=== PATIENT | female | born 1955 | race Caucasian/White ===

== ENCOUNTER 2016-06-20 11:25 | Day surgery (SDC) | payer MEDICARE, OTHER ==
--- NOTE | 2016-06-19 23:37 | HP ---
ADMIT DATE: PREOPERATIVE NOTE PREOPERATIVE DIAGNOSES: Complex regional pain syndrome, right upper extremity. HISTORY OF PRESENT ILLNESS: This is a 60-year-old female with increasing symptoms in the right upper extremity of complex regional pain syndrome, increased swelling, pain, pallor, and allodynic symptoms of the right upper extremity. The patient has done well in the past with stellate ganglion blocks on the right side. Most recently, on 10/30/2015, the patient also had some difficulties with his low back and has done well with some interventional techniques with this as well. She reports she is doing fairly well with the low back pain currently, but the pain in the right upper extremity is becoming much more noticeable and more severe on repeating her activities of daily living to a fairly significant extent once again. The patient reports no new motor or sensory deficits, no other complaints, but still significant pain in the right upper extremity is noted. 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 PAST SURGICAL HISTORY: Previous surgeries include tonsillectomy, orofacial surgeries after injury in 2004. MEDICATIONS: Her most recent medications show diazepam, Lunesta, promethazine, Lamictal, clonidine, Cymbalta, hydrocodone, and hydromorphone. ALLERGIES: THE PATIENT IS ALLERGIC TO FENTANYL AND STRAWBERRIES. 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 REVIEW OF SYSTEMS: The patient's review of systems is positive for pain in the right upper extremity, also some low back pain as noted. Otherwise, this is complete, full and well documented on the patient's chart without other significant findings at this time. PHYSICAL EXAMINATION: VITAL SIGNS: The patient's blood pressure 122/70, pulse 64, respirations 18, temperature is 97.4 degrees Fahrenheit, height is 5 feet 10 inches, weighs 193 pounds. GENERAL: The patient is awake, alert, oriented, appropriate, very pleasant demeanor. HEENT: Shows normocephalic and atraumatic. Extraocular movements are intact and symmetrical. Oral cavity shows mucous membranes are moist and pink. Dentition is intact. NECK: Shows anterior throat supple without palpable lymphadenopathy noted. Swallow reflex is symmetrical. Neck shows full rotational motion of the cervical spine, both extension and flexion as well as right and left lateral rotation. CHEST: Shows normal with inspection. Breath sounds are clear to auscultation bilaterally. HEART: Shows S1 and S2 clear. No murmurs auscultated. ABDOMEN: Soft, nontender, nondistended. No palpable organomegaly. No rebound or guarding demonstrated. EXTREMITIES: Upper extremities: Right arm being held close to her side with guarding the arm with the elbow in a flexed position. The patient does show allodynia with even moderately light touch over the anterior and posterior forearm as well as the posterior and lateral aspect of the upper arm. Hand shows weakened modeling manager at about 2-3 on a scale 5 with pain reported with movement of the hand compared to the left, which is 5/5 and intact. IMPRESSION: This is a 60-year-old female with history of injury with development of complex regional pain syndrome type 1, right upper extremity. PLAN: Options were discussed with the patient and we will schedule the patient for a repeat right-sided stellate ganglion block with fluoroscopic guidance and conscious sedation in the operating suite. The patient will return. We will plan on the procedure on 06/20/2016. SKYLA COHN MD DR: ERIKA/angela JOB#: [id number] / [id number]
[~2016-06-20 11:25] MED LIST: BUPIVACAINE MPF 0.25% 30 ML VIAL. ONE; CLON0.1T PO; DIAZ5TAB PO; DULO30CA2 PO; ESZO3TAB9 PO; HYALURONIDASE, HUMAN RECOMB. 150 UNIT/ML VIAL. IJ ONE; HYDR-2666 PO; HYDR-2762 PO; HYDR2TAB13 PO; HYDROmorphone 2 MG/ML VIAL IV PRN; IOHEXOL 300 MG/ML 50 ML VIAL. ONE; IV RINGERS,LACTATED 1000ML 1,000 ML IV SCH; LAMO150T3 PO; LIDO700A27 TP; LIDO700A4 TP; LIDOCAINE 1% 1 ML SYRINGE. ID PRN; LIDOCAINE 1% PF 30 ML VIAL. ONE; MORPHINE SULFATE 2 MG/ML DISP.SYRIN. IV PRN; ONDANSETRON PF 4 MG/2 ML VIAL. IV PRN; PROCHLORPERAZINE 10 MG/2 ML VIAL. IV PRN; PROM25TA10 PO; SODIUM CHLORIDE 3 % 500 ML IV ONE; TRAM50TA PO; methylPREDNISolone ACETATE 40 MG/ML VIAL. ONE; methylPREDNISolone ACETATE 80 MG/ML VIAL. ONE
[2016-06-20] MEDS ORDERED: PROPOFOL 40 ML IV ONE (12:21)
[2016-06-20] MEDS ORDERED: IV RINGERS,LACTATED 1000ML 1,000 ML IV ONE (12:30)
[2016-06-20] MEDS ORDERED: MIDAZOLAM HCL/PF 2 MG/2 ML VIAL. ONE (12:54)
[2016-06-20] MEDS ORDERED: IOHEXOL 180 MG/ML 10 ML VIAL. IJ ONE (13:08)
[2016-06-20] MEDS ORDERED: PROPOFOL 20 ML IV ONE (13:16)
--- NOTE | 2016-06-20 13:21 | DISCH ---
DISCHARGE INSTRUCTIONS Condition on Discharge Condition on Discharge: Stable Activity After Discharge Activity Instructions for Disc: Activity as tolerated Driving Instructions after Dis: Do not drive today Diet after Discharge Diet after Discharge: Regular Contacting the DR. after DC Call your doctor for: Concerns you may have Treatment/Equipment after DC Adaptive Equipment Issued: None SKYLA COHN MD June 20, 2016 13:21
[2016-06-20] MEDS ORDERED: HYDROmorphone 2 MG TABLET PO PRN (14:00)
[2016-06-20] MEDS ORDERED: HYDROmorphone 2 MG TABLET ONE (14:00)
[2016-06-20 14:36] VITALS: BP 172/85
--- NOTE | 2016-06-20 17:17 | OP ---
DATE OF SURGERY: 06/20/2016 PROCEDURE NOTE FOR PAIN CLINIC PREOPERATIVE DIAGNOSIS: Complex regional pain syndrome, right upper extremity. POSTOPERATIVE DIAGNOSIS: Complex regional pain syndrome, right upper extremity. PROCEDURE: Right stellate ganglion injection with C-arm fluoroscopic guidance. ANESTHESIA: IV sedation and local. COMPLICATIONS: None. BLOOD LOSS: Minimal. DESCRIPTION OF PROCEDURE: After consent was obtained with the patient and her spouse, with risks discussed for the procedure including, but not limited to bleeding, infection, possibility of intravascular injection and sequelae, spread of local anesthetic and numbness, total spinal block as well as resuscitative measures with intravascular injection and poor results regarding pain control. The patient understands and agrees. The patient was taken to operating suite #9 and in supine position moved to the OR bed, all standard monitoring was placed and anesthesia was induced IV for sedation. Under sterile prep and drape, the patient's neck was examined using C-arm and fluoroscopic guidance in both AP and lateral views and identified the cervical spine AP view at the level of the right transverse process and the union of the transverse process and the vertebral body on the right was marked with a skin marker externally. At this point, the area was then anesthetized with 0.25% bupivacaine 1 mL for local anesthetic. At this time, a 22-gauge Jone tipped needle with stylette was then advanced through the anesthetized area under direct fluoroscopic guidance to contact the C6 right transverse process at the junction of the transverse process and the vertebral body. Good contact of bone was made. Stylet was removed. Aspiration was noted to be negative. At this time 1.5 mL of 180 Omnipaque contrast was injected with good local spread superiorly and inferiorly from the needle without wash-up or uptake. This was monitored for 60 seconds with no uptake whatsoever. At this time, 5 mL of 0.25% bupivacaine was then slowly injected intermittently with a control syringe after negative aspiration once again and again direct fluoroscopic guidance between injection boluses, a total of 5 mL. Needle was withdrawn. Sterile bandage was applied. The patient tolerated the procedure well, had no complications. The patient was taken to recovery room in good, awake, and stable condition. SKYLA COHN MD DR: ERIKA/angela JOB#: [id number] / [id number]
== END 2016-06-20 14:38 | disposition home or self-care (01) ==
LOC: SURG 11:25
PROVIDERS: ATTEND Anesthesiology
DX: G90.511 Complex regional pain syndrome I of right upper limb (principal); I10 Essential (primary) hypertension; E66.9 Obesity, unspecified; F32.9 Major depressive disorder, single episode, unspecified; Z87.39 Personal history of other diseases of the musculoskeletal system and connective tissue; H91.91 Unspecified hearing loss, right ear
CPT/HCPCS: 64510; 76000; J2250; J2704; J3490; J1030; J1040; J3470; Q9967

== ENCOUNTER 2016-10-24 11:06 | Day surgery (SDC) | payer MEDICARE, OTHER ==
[~2016-10-24 11:06] MED LIST changes: -BUPIVACAINE MPF 0.25% 30 ML VIAL. ONE; +BUPIVACAINE MPF 0.5% 30 ML VIAL. ONE; +ESZO3TAB28 PO; -ESZO3TAB9 PO; -HYALURONIDASE, HUMAN RECOMB. 150 UNIT/ML VIAL. IJ ONE; -HYDR-2666 PO; +HYDR-2758 PO; -HYDR2TAB13 PO; +HYDR2TAB31 PO; -SODIUM CHLORIDE 3 % 500 ML IV ONE
[2016-10-24] MEDS ORDERED: MIDAZOLAM HCL/PF 2 MG/2 ML VIAL. ONE (12:27)
[2016-10-24] MEDS ORDERED: fentaNYL PF VIAL 100 MCG/2 ML VIAL ONE (12:27)
[2016-10-24] MEDS ORDERED: LIDOCAINE 2% PF Vial for OR 5 ML VIAL. ONE (12:34)
[2016-10-24] MEDS ORDERED: PROPOFOL 20 ML IV ONE (12:34)
[2016-10-24] MEDS ORDERED: BUPIVACAINE 0.25% 50 ML VIAL. ONE (12:36)
[2016-10-24] MEDS ORDERED: IOHEXOL 180 MG/ML 20ML VIAL. ONE (12:36)
--- NOTE | 2016-10-24 12:55 | DISCH ---
DISCHARGE INSTRUCTIONS Condition on Discharge Condition on Discharge: Stable Activity After Discharge Activity Instructions for Disc: Resume previous activity, Activity as tolerated Driving Instructions after Dis: Do not drive today Weight Bearing Status after Di: As tolerated Diet after Discharge Diet after Discharge: Regular Contacting the DR. after DC Call your doctor for: Concerns you may have SKYLA COHN MD Oct 24, 2016 12:55
[2016-10-24 13:45] VITALS: BP 145/76
--- NOTE | 2016-10-24 14:14 | OP ---
DATE OF SURGERY: 10/24/2016 PREOPERATIVE DIAGNOSIS: Complex regional pain syndrome, right upper extremity. POSTOPERATIVE DIAGNOSIS: Complex regional pain syndrome, right upper extremity. PROCEDURE: Right stellate ganglion block with C-arm fluoroscopic guidance. ANESTHESIA: IV sedation and local. ESTIMATED BLOOD LOSS: Minimal. COMPLICATIONS: None. DESCRIPTION OF PROCEDURE: The patient was consented for procedure with risks discussed including, but not limited to bleeding, infection, possibility of intravascular injection and sequelae, spread of local anesthetic and numbness, postoperative bleeding and airway compromise as well as poor results regarding pain control. The patient understands and wishes to proceed. The patient was taken to operating room #2 and placed in supine position. ASA standard monitors were placed. Oxygen was given supplementally and sedation was begun. After timeout, the patient was then prepped and draped in the usual fashion on the anterior cervical distribution in the right neck and shoulder anteriorly. Using C-arm fluoroscopic guidance, the patient's cervical spine was identified and the right transverse process of C6 was identified externally. At this time, 1% lidocaine was used to instill skin wheal over the area overlying the C6 right transverse process. Using a 22-gauge Jone tipped needle with stylet was then advanced through the local anesthetic wheal under direct fluoroscopic guidance to contact the right transverse process at the C6 level. Stylet was removed. Aspiration was noted to be negative. Contrast 180 Isovue 2 mL was used to demonstrate good consistent spread up and down the anterior chain of the right lateral cervical distribution, without wash-out or uptake, and after 30 seconds, it was and found to be in the same position. At this time, with intermittent aspiration negative throughout, 0.25% bupivacaine 10 mL total was injected through the Jone tipped needle, without difficulty or resistance. At this time, needle was withdrawn. Sterile bandage was applied. The patient tolerated the procedure well, had no complications and was taken to the recovery room in good, awake and stable condition. SKYLA COHN MD DR: ERIKA/angela JOB#: [id number] / [id number]
== END 2016-10-24 14:11 | disposition home or self-care (01) ==
LOC: SURG 11:06
PROVIDERS: ATTEND Anesthesiology
DX: G90.511 Complex regional pain syndrome I of right upper limb (principal); Z86.39 Personal history of other endocrine, nutritional and metabolic disease; I10 Essential (primary) hypertension; E66.9 Obesity, unspecified; Z68.44 Body mass index [BMI] 60.0-69.9, adult; Z91.018 Allergy to other foods; Z09 Encounter for follow-up examination after completed treatment for conditions other than malignant neoplasm; Z88.4 Allergy status to anesthetic agent
CPT/HCPCS: 64510; 76000; J2250; J2704; J3490; J1030; J1040; J3010; Q9967; J2001

== ENCOUNTER 2017-04-24 11:46 | Day surgery (SDC) | payer MEDICARE, OTHER ==
[~2017-04-24 11:46] MED LIST changes: -BUPIVACAINE MPF 0.5% 30 ML VIAL. ONE; -CLON0.1T PO; -DIAZ5TAB PO; -DULO30CA2 PO; -ESZO3TAB28 PO; -HYDR-2758 PO; -HYDR-2762 PO; -HYDR2TAB31 PO; +HYDROmorphone 2 MG/ML VIAL IV; -HYDROmorphone 2 MG/ML VIAL IV PRN; -IOHEXOL 300 MG/ML 50 ML VIAL. ONE; -IV RINGERS,LACTATED 1000ML 1,000 ML IV SCH; -LAMO150T3 PO; -LIDO700A27 TP; -LIDO700A4 TP; -LIDOCAINE 1% 1 ML SYRINGE. ID PRN; +LIDOCAINE 1% PF 2 ML VIAL. ID; -LIDOCAINE 1% PF 30 ML VIAL. ONE; +MORPHINE SULFATE 2 MG/ML DISP.SYRIN. IV; -MORPHINE SULFATE 2 MG/ML DISP.SYRIN. IV PRN; +ONDANSETRON PF 4 MG/2 ML VIAL. IV; -ONDANSETRON PF 4 MG/2 ML VIAL. IV PRN; +PROCHLORPERAZINE 10 MG/2 ML VIAL. IV; -PROCHLORPERAZINE 10 MG/2 ML VIAL. IV PRN; -PROM25TA10 PO; -TRAM50TA PO; -methylPREDNISolone ACETATE 40 MG/ML VIAL. ONE; -methylPREDNISolone ACETATE 80 MG/ML VIAL. ONE
[2017-04-24] MEDS: IV RINGERS,LACTATED 1000ML 1,000 ML IV (12:03)
[2017-04-24] MEDS: LIDOCAINE 1% 20 ML VIAL. (12:57)
[2017-04-24] MEDS: BUPIVACAINE MPF 0.25% 30 ML VIAL. (12:57)
[2017-04-24] MEDS: IOHEXOL 300 MG/ML 100ML VIAL. (12:57)
== END 2017-04-24 13:53 | disposition home or self-care (01) ==
LOC: SURG 11:46
DX: G90.511 Complex regional pain syndrome I of right upper limb (principal); Z98.890 Other specified postprocedural states; I10 Essential (primary) hypertension; E66.9 Obesity, unspecified; F32.9 Major depressive disorder, single episode, unspecified; Z88.8 Allergy status to other drugs, medicaments and biological substances; Z91.018 Allergy to other foods
CPT/HCPCS: 64510; 76000; C1769; J3490; Q9967

== ENCOUNTER 2017-08-14 11:13 | Day surgery (SDC) | payer MEDICARE, OTHER ==
[~2017-08-14 11:13] MED LIST changes: +HYALURONIDASE, HUMAN RECOMB. 150 UNIT/ML VIAL. IJ; -HYDROmorphone 2 MG/ML VIAL IV; -ONDANSETRON PF 4 MG/2 ML VIAL. IV; +SODIUM CHLORIDE 3 % 500 ML MC
[2017-08-14] MEDS: IV RINGERS,LACTATED 1000ML 1,000 ML IV (12:03)
[2017-08-14] MEDS: ONDANSETRON PF 4 MG/2 ML VIAL. IV (12:04)
[2017-08-14] MEDS ORDERED: MIDAZOLAM HCL/PF 2 MG/2 ML VIAL. (12:29)
[2017-08-14] MEDS ORDERED: LIDOCAINE 2% PF Vial for OR 5 ML VIAL. (12:41)
[2017-08-14] MEDS ORDERED: PROPOFOL 20 ML IV (12:41)
[2017-08-14] MEDS: ROPIVacaine 0.2% PF 10 ML VIAL. (12:55)
[2017-08-14] MEDS: IOHEXOL 300 MG/ML 100ML VIAL. (12:56)
[2017-08-14] MEDS: LIDOCAINE 1% PF 30 ML VIAL. (12:56)
== END 2017-08-14 14:09 | disposition home or self-care (01) ==
LOC: SURG 11:13
DX: G90.511 Complex regional pain syndrome I of right upper limb (principal); Z91.018 Allergy to other foods; Z88.6 Allergy status to analgesic agent; Z98.890 Other specified postprocedural states; I10 Essential (primary) hypertension; E66.9 Obesity, unspecified; F32.9 Major depressive disorder, single episode, unspecified
CPT/HCPCS: 64510; 76000; 77003; J2001; J2250; J2405; J2704; J2795; J3470; J3490; Q9967

== ENCOUNTER → 2017-12-11 | Day surgery (SDC) | payer MEDICARE, OTHER ==
[~2017-12-11] MED LIST changes: +BUPIVACAINE 0.25% 50 ML VIAL. ONE; +CLON0.1T PO; +DIAZ5TAB PO; +DULO30CA2 PO; +ESZO3TAB28 PO; -HYALURONIDASE, HUMAN RECOMB. 150 UNIT/ML VIAL. IJ; +HYALURONIDASE, HUMAN RECOMB. 150 UNIT/ML VIAL. IJ ONE; +HYDR-2758 PO; +HYDR-2762 PO; +HYDR2TAB31 PO; +HYDROmorphone 2 MG/ML VIAL IV PRN; +IOHEXOL 300 MG/ML 100ML VIAL. ONE; +IV RINGERS,LACTATED 1000ML 1,000 ML IV SCH; +LAMO150T3 PO; +LIDO700A27 TP; +LIDO700A4 TP; -LIDOCAINE 1% PF 2 ML VIAL. ID; +LIDOCAINE 1% PF 2 ML VIAL. ID PRN; +LIDOCAINE 1% PF 30 ML VIAL. ONE; +LIDOCAINE 2% PF Vial for OR 5 ML VIAL. ONE; -MORPHINE SULFATE 2 MG/ML DISP.SYRIN. IV; +MORPHINE SULFATE 2 MG/ML VIAL. IV PRN; +ONDANSETRON PF 4 MG/2 ML VIAL. IV PRN; -PROCHLORPERAZINE 10 MG/2 ML VIAL. IV; +PROCHLORPERAZINE 10 MG/2 ML VIAL. IV PRN; +PROM25TA10 PO; +PROPOFOL 40 ML IV ONE; -SODIUM CHLORIDE 3 % 500 ML MC; +SODIUM CHLORIDE 3 % 500 ML MC ONE; +TRAM50TA PO; +methylPREDNISolone ACETATE 40 MG/ML VIAL. ONE; +methylPREDNISolone ACETATE 80 MG/ML VIAL. ONE
--- NOTE | 2017-12-11 11:04 | PAIN ---
DATE OF SERVICE: 12/11/2017 PROGRESS NOTE FOR PAIN CLINIC DIAGNOSES: 1. Complex regional pain syndrome type 1, right upper extremity. 2. Lumbar radiculopathy with lumbar degenerative disk disease. CHIEF COMPLAINT: Right upper extremity pain. HISTORY OF PRESENT ILLNESS: This is a 62-year-old female with previous right complex regional pain syndrome with good response to right stellate blocks with most recently on 08/13/2017, previously 04/24/2017 with good results with near 80% improvement in the right upper extremity with decreased pain, decreased cold, changes as well as improved color and circulation in the arm. The patient reports she did very well with the pain has been returning now over the past 3-4 weeks with some increased sensitivity to cold sensation and light touch and breeze on the right upper extremity, mostly in the forearm and hand. The patient reports worsening since previous exam. No new motor or sensory changes or deficits but still significant pain as noted. 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 PAST SURGICAL HISTORY: Previous surgeries include tonsillectomy and orofacial surgery as well. CURRENT MEDICATIONS: Include Cymbalta, hydrocodone, promethazine, Lamictal, Lunesta, diazepam, clonidine and hydromorphone. ALLERGIES: The patient is allergic to FENTANYL and STRAWBERRIES. SOCIAL HISTORY: Significant for no smoking. Does not drink alcohol. No other illegal illicit drugs or other substance. 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 REVIEW OF SYSTEMS: Positive for those items mentioned in history of present illness. All systems reviewed and otherwise negative. It is complete, full and well documented on the patient's chart. PHYSICAL EXAMINATION: VITAL SIGNS: The patient's blood pressure is 138/71, pulse 67, respirations are 16 and temperature is 98.2 degrees Fahrenheit. GENERAL: The patient is awake, alert, oriented, appropriate and very pleasant demeanor. HEENT: Head shows normocephalic and atraumatic. Extraocular movements are intact and symmetrical. Oral cavity: Mucous membranes are moist and pink. Dentition is intact. NECK: Shows anterior throat supple without palpable lymphadenopathy noted. Swallow reflex is symmetrical. CHEST: Shows normal with inspection. Breath sounds clear to auscultation bilaterally. HEART: Shows S1 and S2 clear. No murmurs auscultated. ABDOMEN: Soft, nontender and nondistended. Obese. No palpable organomegaly is noted. BACK: Shows spine grossly in the midline. Normal-appearing lordotic cervical curvature as well as thoracic kyphotic curvature and lumbar lordotic curvature. Cervical paraspinous muscle shows some very mild tenderness inferiorly in the cervical paraspinous muscles but only in the inferior aspect without radiation, without asymmetry. No trigger points. The patient has good rotational motion of the cervical spine, both laterally as well as extension and flexion without difficulty. EXTREMITIES: The patient's upper extremities show deep tendon reflexes at 1+ in the biceps and triceps tendons. The patient's right arm is guarded. The patient holding it against her body and productively. The patient has some allodynia with light touch over the anterior and posterior forearm as well as the upper arm, biceps region as well, mostly and the patient's hand does show some mild allodynia with light touch also. The patient's peripheral pulses are 2+ radial distribution. No peripheral edema is noted bilaterally. Upper extremities are warm and dry to touch, equal in color and appearance. Right side slightly more pallorous than the left and the right hand and fingers on the posterior aspect. IMPRESSION: 1. This is a 62-year-old female with a complex regional pain syndrome type 1, right upper extremity. 2. Low back pain with lumbar radiculopathy. PLAN: Options were discussed with the patient including conservative medical management, physical therapy, interventional techniques. She would like to pursue interventional techniques. We discussed repeating a right-sided stellate ganglion block and the patient would like to proceed with this. We will make the arrangements to proceed on December 11 in the Operating Room with fluoroscopic guidance and IV sedation. We will have her scheduled for this. N.p.o. after midnight and plan also a ganglion block at that time. SKYLA COHN MD DR: ERIKA/angela JOB#: [id number] / [id number]
--- NOTE | 2017-12-11 12:38 | DISCH ---
DISCHARGE INSTRUCTIONS Condition on Discharge Condition on Discharge: Stable Activity After Discharge Activity Instructions for Disc: Activity as tolerated Driving Instructions after Dis: Do not drive today Weight Bearing Status after Di: As tolerated Diet after Discharge Diet after Discharge: Regular Wound Incision Care Wound/Incision Care: May get incision wet Contacting the DR. after DC Call your doctor for: Concerns you may have Treatment/Equipment after DC Adaptive Equipment Issued: None SKYLA COHN MD Dec 11, 2017 12:37
[2017-12-11 13:10] VITALS: BP 135/77
--- NOTE | 2017-12-12 06:00 | PAIN ---
DATE OF SERVICE: 12/11/2017 PREOPERATIVE DIAGNOSIS: Complex regional pain syndrome, type 1, right upper extremity. POSTOPERATIVE DIAGNOSIS: Complex regional pain syndrome, type 1, right upper extremity. PROCEDURE: Right stellate ganglion block with fluoroscopic guidance. ANESTHESIA: IV sedation and local. COMPLICATIONS: None. BLOOD LOSS: Minimal. DESCRIPTION OF PROCEDURE: The patient was consented for right stellate ganglion block with risks discussed including, but not limited to bleeding, infection, possibility of intravascular injection sequelae, spread of local anesthetic and numbness, side effects of steroid medication as well as poor results regarding pain control. The patient understands and wished to proceed. The patient was taken to operating room #6. After timeout procedure was performed and sterile prep and drape and ASA monitors placed, using C-arm fluoroscopic guidance in both AP and lateral views, cervical spine was then visualized without difficulty. External marker was placed over the right C6 transverse process. At this time, local anesthetic was used 1% lidocaine without epinephrine to localize the skin over the C6 transverse process. At this time, a 22-gauge Jone pencil point tipped needle with stylet was advanced under fluoroscopic guidance with intermittent views to contact the C6 transverse process. Stylet was removed. Negative aspiration was confirmed. 1 mL of Isovue contrast was injected with good local spread superior and inferior from the needle placement tip. 30 seconds was allowed, refluored without any uptake or washout noted. At this time, 10 mL of 0.25% bupivacaine was then injected under intermittent aspiration with negative aspiration throughout the injection. Needle was withdrawn. Sterile bandage was applied. The patient tolerated procedure well, had no complications, was transferred to the recovery room in good stable and awake condition. SKYLA COHN MD DR: ERIKA/angela JOB#: [id number] / [id number]
--- NOTE | 2017-12-14 10:47 | OP ---
DATE OF SURGERY: 12/11/2017 PREOPERATIVE DIAGNOSIS: Complex regional pain syndrome, type 1, right upper extremity. POSTOPERATIVE DIAGNOSIS: Complex regional pain syndrome, type 1, right upper extremity. PROCEDURE: Right stellate ganglion block with fluoroscopic guidance. ANESTHESIA: IV sedation and local. COMPLICATIONS: None. BLOOD LOSS: Minimal. DESCRIPTION OF PROCEDURE: The patient was consented for right stellate ganglion block with risks discussed including, but not limited to bleeding, infection, possibility of intravascular injection sequelae, spread of local anesthetic and numbness, side effects of steroid medication as well as poor results regarding pain control. The patient understands and wished to proceed. The patient was taken to operating room #6. After timeout procedure was performed and sterile prep and drape and ASA monitors placed, using C-arm fluoroscopic guidance in both AP and lateral views, cervical spine was then visualized without difficulty. External marker was placed over the right C6 transverse process. At this time, local anesthetic was used 1% lidocaine without epinephrine to localize the skin over the C6 transverse process. At this time, a 22-gauge Jone pencil point tipped needle with stylet was advanced under fluoroscopic guidance with intermittent views to contact the C6 transverse process. Stylet was removed. Negative aspiration was confirmed. 1 mL of Isovue contrast was injected with good local spread superior and inferior from the needle placement tip. 30 seconds was allowed, refluored without any uptake or washout noted. At this time, 10 mL of 0.25% bupivacaine was then injected under intermittent aspiration with negative aspiration throughout the injection. Needle was withdrawn. Sterile bandage was applied. The patient tolerated procedure well, had no complications, was transferred to the recovery room in good stable and awake condition. SKYLA COHN MD DR: ERIKA/angela JOB#: [id number] / [id number]
== END | disposition home or self-care (01) ==
LOC: SURG 11:02
PROVIDERS: ATTEND Anesthesiology
DX: G90.511 Complex regional pain syndrome I of right upper limb (principal); I10 Essential (primary) hypertension; E66.9 Obesity, unspecified; F32.9 Major depressive disorder, single episode, unspecified; Z98.890 Other specified postprocedural states; Z79.899 Other long term (current) drug therapy
CPT/HCPCS: 64510; 76000; A7015; J2001; J2704; J3490; Q9967; J1030; J1040; J3470

== ENCOUNTER → 2018-04-05 | Outpatient (CLI) | payer MEDICARE, OTHER ==
[2017-12-11 13:10] VITALS: BP 135/77
[~2018-04-05] MED LIST changes: -BUPIVACAINE 0.25% 50 ML VIAL. ONE; -HYALURONIDASE, HUMAN RECOMB. 150 UNIT/ML VIAL. IJ ONE; -HYDR-2758 PO; +HYDR-2761 PO; -HYDR-2762 PO; +HYDR-2765 PO; -HYDROmorphone 2 MG/ML VIAL IV PRN; -IOHEXOL 300 MG/ML 100ML VIAL. ONE; -IV RINGERS,LACTATED 1000ML 1,000 ML IV SCH; -LIDOCAINE 1% PF 2 ML VIAL. ID PRN; -LIDOCAINE 1% PF 30 ML VIAL. ONE; -LIDOCAINE 2% PF Vial for OR 5 ML VIAL. ONE; -MORPHINE SULFATE 2 MG/ML VIAL. IV PRN; -ONDANSETRON PF 4 MG/2 ML VIAL. IV PRN; -PROCHLORPERAZINE 10 MG/2 ML VIAL. IV PRN; -PROPOFOL 40 ML IV ONE; -SODIUM CHLORIDE 3 % 500 ML MC ONE; -methylPREDNISolone ACETATE 40 MG/ML VIAL. ONE; -methylPREDNISolone ACETATE 80 MG/ML VIAL. ONE
--- NOTE | 2018-04-05 20:23 | PAIN ---
DATE OF SERVICE: 04/05/2018 PROGRESS NOTE FOR PAIN CLINIC DIAGNOSES: 1. Complex regional pain syndrome type 1, right upper extremity. 2. Lumbar radiculopathy with lumbar degenerative disk disease. CHIEF COMPLAINT: Right upper extremity pain. HISTORY OF PRESENT ILLNESS: The patient is a 62-year-old female with previous right complex regional pain syndrome, good response from stellate ganglion blocks with the last block about 80% improved. This was in November of 2017. The patient did very well until the last 4-5 weeks with returning pain in the right upper extremity with any motion or use of the shoulder and arm. Has weakness of the hand, difficulty dropping items. She cannot hold a coffee cup with her right hand, also cold sensation as well as some pallor in the right arm and hand. The patient reports no new motor or sensory deficits; however, no new bowel or bladder incontinence, still significant pain, right upper extremity, again worsening since previous exam. 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 PREVIOUS SURGERY: Include tonsillectomy, orofacial surgeries after injury in 2004. CURRENT MEDICATIONS: Include diazepam, Lunesta, promethazine, Lamictal, hydromorphone, hydrocodone, Cymbalta, clonidine and lidocaine patches. ALLERGIES: The patient is allergic to FENTANYL and STRAWBERRIES. 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 REVIEW OF SYSTEMS: The patient's review of systems is positive for those items mentioned in history of present illness, is complete, full and well documented on the patient's chart. All systems reviewed. No other significant findings. PHYSICAL EXAMINATION: VITAL SIGNS: Today, the patient's blood pressure is 144/81, pulse 61, respirations 18, temperature 98.1 degrees Fahrenheit, height is 5 feet 10 inches, weighs 189 pounds. GENERAL: The patient is awake, alert, oriented, appropriate, very pleasant demeanor. HEENT: Head is normocephalic, atraumatic. Extraocular movements intact and symmetrical. Oral cavity: Mucous membranes moist and pink. Dentition is intact. NECK: Shows full range of motion of the cervical spine. Anterior throat is supple without palpable lymphadenopathy noted. Swallow reflex is symmetrical. CHEST: Shows normal on inspection. Breath sounds clear to auscultation bilaterally. HEART: Shows S1, S2 clear. No murmurs auscultated. ABDOMEN: Soft, nontender, nondistended. No palpable organomegaly is noted. No rebound or guarding demonstrated. BACK: Shows grossly midline spine. Normal appearing cervical lordotic curvature, thoracic kyphotic curvature and lumbar lordotic curvature. Cervical paraspinous muscle shows some mild tenderness in the inferior aspect of the cervical paraspinous musculature, but without radiation. No atrophy, hypertrophy. Lumbar spine shows moderate tenderness in the low lumbar distribution bilaterally without significant radiation as well. Good rotational motion both cervical and lumbar spine without significant pain reported. EXTREMITIES: The patient's upper extremities show deep tendon reflexes at 1+ in the biceps and triceps tendons. Right arm is guarded being held in a flexed position, closed to the patient's side with some allodynia with moderately light touch over the anterior and posterior forearm as well as the upper arm, back of the hand without significant discoloration noted compared to the left upper extremity. The left shows humanities teacher strength 5/5, right is 3/5. Peripheral pulses are 2+ bilaterally in the radial distribution. SKIN: Shows warm and dry, good turgor. No edema. IMPRESSION: 1. This is a 62-year-old female with complex regional pain syndrome type 1, right upper extremity. 2. Low back pain with lumbar radiculopathy and degenerative disk disease. PLAN: Options were discussed with the patient including conservative medical management, physical therapy, interventional techniques. She would like to proceed with interventional techniques. She did very well with right stellate ganglion blocks under fluoroscopic guidance with some conscious sedation. We will schedule this with the operating suite for her next available as she has responded very well with these in the past and the pain is increasing over the past month or so in the right upper extremity. We will maintain with stretching and strengthening exercises, mobility exercises with the right upper extremity and medications will be refilled today as well, hydromorphone, hydrocodone, clonidine as well as Lidoderm patches and Valium. The patient was given instruction as well as side effects of each of medications. She has had appropriate K-TRACS reporting as well as appropriate urinalysis to date and we will refill these with instructions as described. The patient will follow up in approximately at next available. We will check with OR scheduling and return for right stellate ganglion block. SKYLA COHN MD DR: ERIKA/angela JOB#: [id number] / [id number]
== END | disposition home or self-care (01) ==
LOC: PNCL 10:07
PROVIDERS: ATTEND Anesthesiology
DX: G90.511 Complex regional pain syndrome I of right upper limb (principal); M51.16 Intervertebral disc disorders with radiculopathy, lumbar region
CPT/HCPCS: G0463

== ENCOUNTER 2018-04-16 11:26 | Day surgery (SDC) | payer MEDICARE, OTHER ==
[~2018-04-16 11:26] MED LIST changes: +BUPIVACAINE 0.25% 50 ML VIAL. ONE; +HYDROmorphone 2 MG/ML VIAL IV PRN; +IOHEXOL 300 MG/ML 100ML VIAL. ONE; +IV RINGERS,LACTATED 1000ML 1,000 ML IV SCH; +LIDOCAINE 1% PF 30 ML VIAL. ONE; +MORPHINE SULFATE 2 MG/ML VIAL. IV PRN; +ONDANSETRON PF 4 MG/2 ML VIAL. IV PRN; +PROCHLORPERAZINE 10 MG/2 ML VIAL. IV PRN; +methylPREDNISolone ACETATE 40 MG/ML VIAL. ONE; +methylPREDNISolone ACETATE 80 MG/ML VIAL. ONE
[2018-04-16] MEDS ORDERED: MIDAZOLAM HCL/PF 2 MG/2 ML VIAL. ONE (12:04)
[2018-04-16] MEDS ORDERED: PROPOFOL 20 ML IV ONE (12:53)
--- NOTE | 2018-04-16 13:08 | DISCH ---
DISCHARGE INSTRUCTIONS Condition on Discharge Condition on Discharge: Stable Activity After Discharge Activity Instructions for Disc: Activity as tolerated Driving Instructions after Dis: Do not drive today Weight Bearing Status after Di: As tolerated Diet after Discharge Diet after Discharge: Regular Wound Incision Care Wound/Incision Care: May get incision wet Contacting the DR. after DC Call your doctor for: Concerns you may have Treatment/Equipment after DC Adaptive Equipment Issued: None SKYLA COHN MD Apr 16, 2018 13:08
[2018-04-16 13:53] VITALS: BP 140/99
--- NOTE | 2018-04-17 00:11 | OP ---
DATE OF SURGERY: 04/16/2018 PREOPERATIVE DIAGNOSIS: Complex regional pain syndrome, right upper extremity. POSTOPERATIVE DIAGNOSIS: Complex regional pain syndrome, right upper extremity. PROCEDURE: Right stellate ganglion block with C-arm fluoroscopic guidance. COMPLICATIONS: None. ANESTHESIA: IV sedation and local. DESCRIPTION OF PROCEDURE: The patient was consented for right stellate ganglion block. Risks discussed including, but not limited to bleeding, infection, possibility of intravascular injection sequelae, spread of local anesthetic and numbness, side effects of local anesthetic intravenous including seizures with associated measures if necessary as well as exposure to fluoroscopy and poor results regarding pain control. The patient understands and agrees and wishes to proceed. The patient was taken to operating room #8 with ASA standard monitors placed, with the patient transferring herself to her own bed without difficulty in the supine position. IV sedation was begun after the monitors were placed and the patient's neck was prepped on the right side, the neck and shoulder under sterile prep and drape in the usual fashion. Using C-arm fluoroscopic guidance to directly visualize the cervical spine on the right side, the transverse process of the C6 vertebral body was identified and local anesthetic using 1% lidocaine was then used for local anesthesia of the skin and subcutaneous tissues. Using a 22-gauge Jone needle with stylet, the area through the anesthetized skin was then entered under direct visualization. It was extended to the contact of the right transverse process at the C6 vertebral body. This was verified again with C-arm fluoroscopic guidance. The stylet was removed from the needle. Using Isovue 200, 1 mL was then injected with good local spread above and below the area of the transverse process, without uptake. This was checked again after 30 seconds, with no uptake. No vascular spread or washout. At this time, a 0.25% bupivacaine was then injected through the needle with intermittent aspiration after every mL, with negative aspiration throughout the procedure and injection for a total of 10 mL. Needle was withdrawn. Sterile bandage was applied. The patient was transferred to the recovery room in good and stable condition, without immediate complications. SKYLA COHN MD DR: ERIKA/angela JOB#: [id number] / [id number]
== END 2018-04-16 14:17 | disposition home or self-care (01) ==
LOC: SURG 11:26
PROVIDERS: ATTEND Anesthesiology
DX: G90.511 Complex regional pain syndrome I of right upper limb (principal); M51.16 Intervertebral disc disorders with radiculopathy, lumbar region; Z88.6 Allergy status to analgesic agent; Z91.018 Allergy to other foods; H54.40 Blindness, one eye, unspecified eye; Z98.890 Other specified postprocedural states; H91.90 Unspecified hearing loss, unspecified ear; Z79.899 Other long term (current) drug therapy
CPT/HCPCS: 64510; 76000; J2250; J2704; J3490; Q9967; J1030; J1040

== ENCOUNTER 2018-10-15 11:12 | Day surgery (SDC) | payer MEDICARE, OTHER ==
[~2018-10-15 11:12] MED LIST changes: -BUPIVACAINE 0.25% 50 ML VIAL. ONE; +BUPIVACAINE MPF 0.25% 30 ML VIAL. ONE; +HYALURONIDASE, HUMAN RECOMB. 150 UNIT/ML VIAL. IJ ONE; -IOHEXOL 300 MG/ML 100ML VIAL. ONE; +IOHEXOL 300 MG/ML 50 ML VIAL. ONE; +LIDOCAINE 1% 20 ML VIAL. ONE; +LIDOCAINE 1% PF 2 ML VIAL. ONE; -LIDOCAINE 1% PF 30 ML VIAL. ONE; +SODIUM CHLORIDE 3 % 500 ML IV ONE
[2018-10-15] MEDS ORDERED: PROPOFOL 20 ML IV ONE (11:45)
[2018-10-15] MEDS ORDERED: MIDAZOLAM HCL/PF 2 MG/2 ML VIAL. ONE (12:18)
[2018-10-15] MEDS ORDERED: PROPOFOL 50 ML IV ONE (12:27)
[2018-10-15] MEDS ORDERED: 0.9 % SODIUM CHLORIDE 20 ML VIAL. IJ ONE (13:01)
[2018-10-15] MEDS ORDERED: LIDOCAINE 2% PF 5 ML VIAL. ONE (13:10)
--- NOTE | 2018-10-15 13:16 | DISCH ---
DISCHARGE INSTRUCTIONS Condition on Discharge Condition on Discharge: Stable Activity After Discharge Activity Instructions for Disc: Activity as tolerated Driving Instructions after Dis: Do not drive today Weight Bearing Status after Di: As tolerated Diet after Discharge Diet after Discharge: Regular Wound Incision Care Wound/Incision Care: May get incision wet Contacting the DR. after DC Call your doctor for: Concerns you may have Treatment/Equipment after DC Adaptive Equipment Issued: None SKYLA COHN MD Oct 15, 2018 13:16
[2018-10-15 14:40] VITALS: BP 118/74
--- NOTE | 2018-10-15 23:13 | PREOP HP ---
DATE OF SERVICE: 10/15/2018 PREOPERATIVE HISTORY AND PHYSICAL DIAGNOSES: 1. Complex regional pain syndrome type 1, right upper extremity. 2. Lumbar radiculopathy with lumbar degenerative disk disease. CHIEF COMPLAINT: Right upper extremity pain. HISTORY OF PRESENT ILLNESS: This is a 63-year-old female with right complex regional pain syndrome in the upper extremity with good response from stellate ganglion blocks with last block about 80%-90% improved. The patient reports that she did very well until the last 2-3 weeks, the pain has been returning in the right upper extremity with use of the shoulder and arm, weakness in the hand, difficulty with holding items and dropping things, also cold sensation as well as some pallor in the right arm and hand and some minor swelling in the fingers. The patient reports no new motor or sensory deficits, no new bowel or bladder incontinence, still significant pain in right upper extremity, worse since previous injection. PAST MEDICAL HISTORY: Significant for shortness of breath, spastic gallbladder, blindness in the right eye, partial low back pain, hearing loss, radicular pain, and complex regional pain syndrome, right upper extremity. PREVIOUS SURGERY: Include tonsillectomy, orofacial surgeries in 2004. CURRENT MEDICATIONS: Include diazepam, Lunesta, promethazine, Lamictal, Cymbalta, hydrocodone, hydromorphone, lidocaine patches, and clonidine. ALLERGIES: THE PATIENT IS ALLERGIC TO STRAWBERRIES AND FENTANYL. 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 She does not smoke, does not drink alcohol, and does not use any illegal, illicit, or recreational substances or other medications. REVIEW OF SYSTEMS: Positive for those items mentioned in history of present illness, is full, complete and well documented on the patient's chart. PHYSICAL EXAMINATION: VITAL SIGNS: Blood pressure is 138/86, pulse 67, respirations are 16, temperature is 98.4 degrees Fahrenheit, height is 5 feet 10 inches, and weight is 188 pounds. GENERAL: The patient is awake, alert, oriented, appropriate, and very pleasant demeanor. HEENT: Shows normocephalic and atraumatic. Extraocular movements are intact and symmetrical. NECK: Shows anterior throat is supple without palpable lymphadenopathy. ____ full rotational motion of cervical spine. CHEST: Shows normal on inspection. Breath sounds are clear bilaterally. HEART: Shows S1 and S2 clear. ABDOMEN: Soft, nontender, and nondistended. BACK: Shows grossly in the midline, normal-appearing cervical lordotic curvature, thoracic kyphotic curvature and lumbar lordotic curvature. Cervical musculature shows some mild tenderness in the inferior aspect of the cervical paraspinous musculature, but full rotation of the cervical spine without difficulty. EXTREMITIES: The patient's upper extremities show deep tendon reflexes 1+ in the biceps and triceps tendons. Right arm is guarded being held in a flexed position close to the patient's side with some allodynia with even moderately to light touch over the anterior and posterior forearm as well as the upper arm, back of the hand, without significant discoloration noted compared to the left extremity, which is normal in appearance. Motor exam shows approximately 3 on a scale of 5 on the right with compressor mechanic strength. Deep tendon reflexes 2+ biceps and triceps bilaterally. IMPRESSION: 1. This is a 63-year-old female with complex regional pain syndrome type 1, right upper extremity. 2. Low back pain and lumbar radicular degenerative disk disease. PLAN: Options were discussed with the patient including conservative medical management, physical therapies, and interventional techniques. She would like to pursue interventional techniques. We discussed a right repeat stellate ganglion block using description as well as anatomical models to describe the procedure. Risks were discussed including but not limited to bleeding, infection, possibility of intravascular injection sequelae, potential spinal block, and full resuscitative measures if necessary as well as poor results regarding pain control, exposure of fluoroscopy. The patient understands and wished to proceed. The patient will return to the clinic as scheduled. SKYLA COHN MD DR: ERIKA/angela JOB#: [id number] / [id number]
--- NOTE | 2018-10-21 09:58 | OP ---
DATE OF SURGERY: 10/15/2018 PREOPERATIVE DIAGNOSIS: Complex regional pain syndrome type 1, right upper extremity. POSTOPERATIVE DIAGNOSIS: Complex regional pain syndrome type 1, right upper extremity. PROCEDURE: Right stellate ganglion block with fluoroscopic guidance. BLOOD LOSS: Minimal. ANESTHESIA: IV sedation. COMPLICATIONS: None. DESCRIPTION OF PROCEDURE: The patient was consented for right stellate ganglion block with risks discussed including, but not limited to bleeding, infection, possibility of intravascular injection sequelae, possible spinal block and resuscitative measures if necessary as well as poor results regarding pain control and exposure of fluoroscopy. The patient understands and wished to proceed. The patient was taken to operating room #6 and placed in the prone position with ASA monitors placed and oxygen was applied. IV sedation was begun. The patient was sterilely prepped and draped in the neck on the right side in the usual fashion with sterile drapes in usual fashion after 3 minutes of drying time for the prep was allowed using C-arm fluoroscopic guidance. The patient's cervical spine was identified with fluoroscopic view and AP dimension and the C6 lateral right-sided transverse process was localized using external skin marker. At this time, 1% lidocaine with 1:200,000 epinephrine was used to create a skin wheal above the transverse process of the C6 vertebral body. At this time, a 22-gauge Jone needle was introduced under intermittent fluoroscopic visualization to guide the tip of the needle to rest at the medial aspect of the transverse process at the C6 vertebral body. Stylet was removed. Aspiration was noted to be negative. Isovue 180 contrast was used to demonstrate good tracking superiorly and inferiorly of the contrast above and below the needle insertion site with negative aspiration and no washout noted with subsequent images after 10 seconds, no washout once again appreciated. At this time, 0.25% bupivacaine, 10 mL was injected through the Jone needle intermittently at 1 mL at a time with negative aspiration between injection throughout the injection process. Needle was withdrawn. Sterile bandage was applied. The patient was taken to recovery room in good stable and awake condition. Mild Mary syndrome and some hoarseness of voice noted immediately postoperatively. No other immediate findings and no complications demonstrated. The patient will follow up as scheduled for outpatient followup in my office. SKYLA COHN MD DR: ERIKA/angela JOB#: [id number] / [id number]
== END 2018-10-15 14:40 | disposition home or self-care (01) ==
LOC: SURG 11:12
PROVIDERS: ATTEND Anesthesiology
DX: G90.511 Complex regional pain syndrome I of right upper limb (principal); M51.16 Intervertebral disc disorders with radiculopathy, lumbar region; Z98.890 Other specified postprocedural states; Z91.018 Allergy to other foods; Z88.8 Allergy status to other drugs, medicaments and biological substances
CPT/HCPCS: 64510; J2001; J2250; J2405; J2704; J3490; Q9967; 76000; J1030; J1040; J3470

== ENCOUNTER → 2019-01-25 | Outpatient (CLI) | payer MEDICARE, OTHER ==
[~2019-01-25] MED LIST changes: -BUPIVACAINE MPF 0.25% 30 ML VIAL. ONE; -HYALURONIDASE, HUMAN RECOMB. 150 UNIT/ML VIAL. IJ ONE; -HYDROmorphone 2 MG/ML VIAL IV PRN; -IOHEXOL 300 MG/ML 50 ML VIAL. ONE; -IV RINGERS,LACTATED 1000ML 1,000 ML IV SCH; -LIDOCAINE 1% 20 ML VIAL. ONE; -LIDOCAINE 1% PF 2 ML VIAL. ONE; -MORPHINE SULFATE 2 MG/ML VIAL. IV PRN; -ONDANSETRON PF 4 MG/2 ML VIAL. IV PRN; -PROCHLORPERAZINE 10 MG/2 ML VIAL. IV PRN; -SODIUM CHLORIDE 3 % 500 ML IV ONE; -methylPREDNISolone ACETATE 40 MG/ML VIAL. ONE; -methylPREDNISolone ACETATE 80 MG/ML VIAL. ONE
--- NOTE | 2019-01-25 17:16 | PAIN ---
DATE OF SERVICE: 01/25/2019 PROGRESS NOTE FOR PAIN CLINIC DIAGNOSIS: Complex regional pain syndrome, right upper extremity. HISTORY OF PRESENT ILLNESS: The patient is a 63-year-old female who returns for followup, status post stellate ganglion injections as well as medication management and lumbar epidural steroid injections for her low back and radicular pain. The patient reports she is doing fairly well with her right arm is becoming much more painful with a significant increase in swelling, hypersensitivity and allodynia of the right upper extremity as well as some discoloration and mostly swelling in the fingers and wrist of the right hand. The patient reports it is aching and dull, tingling, burning, cramping at times, also some low back pain, but fairly well controlled with some left-sided radicular pain, but again much better. The patient reports she has lost some weight since her last visit and this is helping her low back as well. The patient reports it is worse at night in the arm. She is unable to perform fine motor movements with any weightbearing or any repetitive motions with the upper extremity as previously as it is significantly painful. She does have it in a splint on her visit today. The patient reports the pain is a 10 on a scale of 10 at its worst, 9 on average, 6 at its least over the past week and is a 9 today. The patient reports no new motor or sensory deficits, awakening her from sleep about every 2 hours. No new changes. PHYSICAL EXAMINATION: VITAL SIGNS: The patient's blood pressure is 148/88, pulse 57, respirations 18, temperature 97.4 degrees Fahrenheit, height is 5 feet 10 inches and weight is 194 pounds. GENERAL: The patient is awake, alert, oriented, appropriate, very pleasant demeanor. HEENT: Shows normocephalic, atraumatic. Extraocular movements are intact and symmetrical. Oral cavity: Mucous membranes moist and pink. Dentition is intact. NECK: Shows anterior throat supple without palpable lymphadenopathy noted. Swallow reflex symmetrical. CHEST: Shows normal on inspection. Breath sounds are clear bilaterally. HEART: Shows S1, S2 clear. No murmurs auscultated. ABDOMEN: Soft, nontender, nondistended. No palpable organomegaly is noted. No rebound or guarding demonstrated. BACK: Shows spine grossly in the midline. Lumbar paraspinous muscle shows symmetrical on inspection, with palpation shows some mild tenderness, but only diffusely without significant radiation. EXTREMITIES: Lower extremities show deep tendon reflexes at 2+ in the patellar and 1+ tendo-calcaneus tendons. Motor exam is strong with approximately 5/5 dorsiflexion, extension, quadriceps and hamstring flexion. The patient's upper extremities show deep tendon reflexes at 2+ in the biceps and triceps tendons. The patient's right arm is being held close to her side again with a splint on initial presentation. She has some moderate swelling in the hand and finger on the right side, but not the left with some bluish discoloration on the forearm and the posterior aspect of the hand on the right side again, but not on the left side. The patient's motor exam is approximately 3-4 on a scale of 5 on the right with bicep and tricep flexion and 3/5 with supervisor shuttle preparation strength, 5/5 on the left throughout. Peripheral pulses are 2+ in the radial distribution bilaterally. The patient has some moderate allodynia with light touch, mostly on the forearm on the anterior aspect as well as the posterior aspect of the hand on the right side only. Options were discussed with the patient. The patient's old chart was reviewed as her current medication regimen updated. Current review of systems updated today as well. We will schedule the patient for a stellate ganglion block on the right with conscious sedation and fluoroscopic guidance. As the patient's back is doing well, we will hold on any further procedures for the radiculopathy in the low back and left lower extremity. We will make arrangements for OR sedation and right stellate ganglion block. SKYLA COHN MD DR: ERIKA/angela JOB#: [id number] / [id number]
== END ==
LOC: PNCL 13:01
PROVIDERS: ATTEND Anesthesiology
DX: G90.511 Complex regional pain syndrome I of right upper limb (principal); I10 Essential (primary) hypertension; Z90.89 Acquired absence of other organs
CPT/HCPCS: G0463

== ENCOUNTER 2019-01-28 11:01 | Day surgery (SDC) | payer MEDICARE, OTHER ==
[~2019-01-28] VITALS: Ht 177.8 cm; Wt 88.0 kg
[~2019-01-28 11:01] MED LIST changes: +HYALURONIDASE, HUMAN RECOMB. 150 UNIT/ML VIAL. IJ ONE; +HYDROmorphone 2 MG/ML VIAL IV PRN; +IV RINGERS,LACTATED 1000ML 1,000 ML IV SCH; +LIDOCAINE 1% PF 2 ML VIAL. ID PRN; +MORPHINE SULFATE 2 MG/ML VIAL. IV PRN; +ONDANSETRON PF 4 MG/2 ML VIAL. IV PRN; +PROCHLORPERAZINE 10 MG/2 ML VIAL. IV PRN; +SODIUM CHLORIDE 3 % 500 ML IV ONE
[2019-01-28] MEDS ORDERED: MIDAZOLAM HCL/PF 2 MG/2 ML VIAL. ONE (11:52)
[2019-01-28] MEDS ORDERED: LIDOCAINE 1% 20 ML VIAL. ONE (12:09)
[2019-01-28] MEDS ORDERED: BUPIVACAINE MPF 0.25% 30 ML VIAL. ONE (12:09)
[2019-01-28] MEDS ORDERED: methylPREDNISolone ACETATE 80 MG/ML VIAL. ONE (12:09)
[2019-01-28] MEDS ORDERED: methylPREDNISolone ACETATE 40 MG/ML VIAL. ONE (12:09)
[2019-01-28] MEDS ORDERED: IOHEXOL 300 MG/ML 50 ML VIAL. ONE (12:09)
[2019-01-28] MEDS ORDERED: PROPOFOL 50 ML IV ONE (12:43)
[2019-01-28] MEDS ORDERED: PROPOFOL 20 ML IV ONE (12:48)
--- NOTE | 2019-01-28 13:10 | DISCH ---
DISCHARGE INSTRUCTIONS Condition on Discharge Condition on Discharge: Stable Activity After Discharge Activity Instructions for Disc: Activity as tolerated Driving Instructions after Dis: Do not drive today Weight Bearing Status after Di: As tolerated Diet after Discharge Diet after Discharge: Regular Wound Incision Care Wound/Incision Care: May get incision wet Contacting the DR. after DC Call your doctor for: Concerns you may have Treatment/Equipment after DC Adaptive Equipment Issued: None SKYLA COHN MD Jan 28, 2019 13:10
--- NOTE | 2019-01-28 13:13 | PDOC4 ---
OPERATIVE NOTE Date: Date: Oct 15, 2018 Pre-Op Diagnosis: CRPS Rt UE Post-Op Diagnosis: same Procedure Performed: Rt Stellate ganglion block with C-arm Surgeon: Timur Anesthesia Type: MAC Blood Loss: min Specimans Obtained: none Findings: see dictation Complications: none Operative Note: see dictation SKYLA COHN MD Jan 28, 2019 13:12
[2019-01-28] MEDS ORDERED: HYDROcodone/APAP 7.5/325MG 1 TAB TABLET PO ONE (13:45)
[2019-01-28 14:05] VITALS: BP 144/83
--- NOTE | 2019-01-29 00:45 | OP ---
DATE OF SURGERY: 01/28/2019 PREOPERATIVE DIAGNOSIS: Complex regional pain syndrome, right upper extremity. POSTOPERATIVE DIAGNOSIS: Complex regional pain syndrome, right upper extremity. PROCEDURE: Right stellate ganglion block with fluoroscopic guidance. COMPLICATIONS: None. BLOOD LOSS: Minimal. ANESTHESIA: IV sedation and local. DESCRIPTION OF PROCEDURE: The patient was consented for the procedure with risks discussed including, but not limited to bleeding, infection, possibility of extravasation of local anesthetic and spread with numbness, also possible total spinal block and resuscitative measures if necessary as well as poor results regarding pain control. The patient agrees and wished to proceed. The patient was taken to operating room #5, placed in supine position with ASA monitors in place and supplemental oxygen. IV sedation was then begun. Once the patient was sedated under IV sedation, the patient's neck was then prepped on the right in sterile prep and sterilely draped after 3 minutes of drying for the Betadine prep. Using C-arm fluoroscopic guidance, cervical spine was visualized with external marker. The area overlying the C6 transverse process on the right in the medial aspect was identified and the area of the skin overlying this was locally anesthetized with 1% lidocaine with 1:200,000 epinephrine. Using a 22-gauge Jone tipped needle with stylet was then advanced through the anesthetized area of skin with direct fluoroscopic guidance to contact the C6 transverse process on the right with negative aspiration noted. Contrast was then injected 2 mL, with good spread superior and inferior along the lateral right border of the vertebral column with no uptake. This was rechecked after 1 minute without uptake as well or washout. At this time, bupivacaine 0.25% was injected with intermittent aspiration with no aspiration; 10 mL total. Needle was withdrawn. Sterile bandage was applied. The patient tolerated the procedure well, had no immediate complications. The patient was transferred to the recovery room in good and stable condition. SKYLA COHN MD DR: ERIKA/angela JOB#: [id number] / [id number]
== END 2019-01-28 14:10 | disposition home or self-care (01) ==
LOC: SURG 11:01
PROVIDERS: ATTEND Anesthesiology
DX: G90.511 Complex regional pain syndrome I of right upper limb (principal); I10 Essential (primary) hypertension; F32.9 Major depressive disorder, single episode, unspecified; Z87.39 Personal history of other diseases of the musculoskeletal system and connective tissue
CPT/HCPCS: 64510; J2250; J2704; J3490; Q9967; 76000; J1030; J1040; J3470

== ENCOUNTER 2019-05-06 11:03 | Day surgery (SDC) | payer MEDICARE, OTHER ==
--- NOTE | 2019-05-06 11:02 | PREOP HP ---
DATE OF SERVICE: 05/06/2019 PREOPERATIVE HISTORY AND PHYSICAL AND ASSESSMENT DATE OF SURGERY: 05/06/2019. PREOPERATIVE DIAGNOSIS: Complex regional pain syndrome, right upper extremity. POSTOPERATIVE DIAGNOSIS: Complex regional pain syndrome, right upper extremity. HISTORY OF PRESENT ILLNESS: This is a 63-year-old female with history of injury to the right upper extremity with complex regional pain syndrome, status post stellate ganglion block injections as well as medication management. The patient reports she is doing fairly well with her right arm, becoming more painful and significant increase in swelling, hypersensitivity, and allodynia of the right upper extremity with some discoloration at times and swelling in the fingers and wrist of the right hand and inspection of posterior aspect of the right hand. The patient reports it is aching, dull, tingling, burning, and cramping at times. The patient reports it is worse at night, keeping her from sleep, unable to perform fine motor movements with any weightbearing, repetitive motions with the right upper extremity and hand as well. The patient has been wearing a splint for most of the recent month or so. The patient did have a stellate ganglion block performed on 01/28/2019 with very good results, near 90% improvement with pain returning now as described. The patient reports no new motor or sensory deficits or other complaints. No new findings. PHYSICAL EXAMINATION: VITAL SIGNS: The patient's blood pressure 147/87, pulse is 66, respirations are 16, temperature is 97.5 degrees Fahrenheit, height 5 feet 10 inches, weight is 189 pounds. GENERAL: The patient is awake, alert, oriented, appropriate, very pleasant demeanor. HEENT: Normocephalic, atraumatic. Extraocular movements are intact and symmetrical. Oral cavity: Mucous membranes moist and pink. Dentition is intact. NECK: Shows anterior throat is supple without palpable lymphadenopathy noted. CHEST: Shows normal on inspection. Breath sounds clear bilaterally. HEART: Shows S1, S2 clear. ABDOMEN: Soft, nontender, and nondistended. BACK: Shows spine grossly in the midline. Cervical paraspinous muscle shows symmetrical on inspection. No significant tenderness. Lumbar spine shows some mild tenderness in the low lumbar distribution only diffusely without radiation or abnormalities or asymmetries. EXTREMITIES: The patient's extremities show upper extremity deep tendon reflexes 2+ in the biceps and triceps tendons. The patient's right arm is held close to her side with a splint on initial presentation, moderate swelling in the hand and fingers on the right compared to the left, some mild bluish discoloration on the forearm and the posterior aspect of the hand on the right side as well, but no discoloration on the left. 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 Peripheral pulses are 2+ radial bilaterally. Options were discussed with the patient. The patient's old chart was reviewed as her current medication regimen updated. Current review of systems updated today as well. We will schedule the patient for repeat right stellate ganglion block with fluoroscopic guidance. Risks were discussed including, but not limited to bleeding, infection, possibility of intravascular injection sequelae, potential total spinal block with associated measures resuscitative measures if necessary as well as exposure to fluoroscopy and poor results regarding pain control. The patient understands and wished to proceed. We will make arrangements for OR sedation and right stellate ganglion block with fluoroscopic guidance. SKYLA COHN MD DR: ERIKA/angela JOB#: [id number] / [id number]
[~2019-05-06 11:03] MED LIST changes: +BUPIVACAINE MPF 0.25% 30 ML VIAL. ONE; -HYALURONIDASE, HUMAN RECOMB. 150 UNIT/ML VIAL. IJ ONE; -HYDROmorphone 2 MG/ML VIAL IV PRN; +IOHEXOL 300 MG/ML 50 ML VIAL. ONE; -IV RINGERS,LACTATED 1000ML 1,000 ML IV SCH; +LIDOCAINE 1% Multi-Dose 20 ML VIAL. ONE; -LIDOCAINE 1% PF 2 ML VIAL. ID PRN; -MORPHINE SULFATE 2 MG/ML VIAL. IV PRN; -ONDANSETRON PF 4 MG/2 ML VIAL. IV PRN; -PROCHLORPERAZINE 10 MG/2 ML VIAL. IV PRN; -SODIUM CHLORIDE 3 % 500 ML IV ONE
[2019-05-06] MEDS ORDERED: IV RINGERS,LACTATED 1000ML 1,000 ML IV SCH (11:45)
[2019-05-06] MEDS ORDERED: MIDAZOLAM HCL/PF 2 MG/2 ML VIAL. ONE (12:40)
[2019-05-06] MEDS ORDERED: fentaNYL PF VIAL 100 MCG/2 ML VIAL ONE (12:40)
[2019-05-06] MEDS ORDERED: LIDOCAINE 2% PF 5 ML VIAL. ONE (12:47)
[2019-05-06] MEDS ORDERED: PROPOFOL 20 ML IV ONE (12:48)
--- NOTE | 2019-05-06 13:07 | DISCH ---
DISCHARGE INSTRUCTIONS Condition on Discharge Condition on Discharge: Stable Activity After Discharge Activity Instructions for Disc: Activity as tolerated Driving Instructions after Dis: Do not drive today Weight Bearing Status after Di: As tolerated Diet after Discharge Diet after Discharge: Regular Wound Incision Care Wound/Incision Care: May get incision wet Contacting the DR. after DC Call your doctor for: Concerns you may have Treatment/Equipment after DC Adaptive Equipment Issued: None SKYLA COHN MD May 06, 2019 13:07
--- NOTE | 2019-05-06 13:10 | PDOC4 ---
OPERATIVE NOTE Date: Date: May 06, 2019 Pre-Op Diagnosis: right ue crps Post-Op Diagnosis: same Procedure Performed: right stellate ganglion block Surgeon: Timur Anesthesia Type: MAC / Local Blood Loss: MIN Specimans Obtained: none Findings: see dictation Complications: none Operative Note: see dictaTION SKYLA COHN MD May 06, 2019 13:10
[2019-05-06 13:20] VITALS: BP 134/77
[2019-05-06] MEDS ORDERED: PROCHLORPERAZINE 10 MG/2 ML VIAL. ONE (13:48)
[2019-05-06] MEDS ORDERED: PROCHLORPERAZINE 10 MG/2 ML VIAL. IV ONE (14:15)
--- NOTE | 2019-05-09 10:32 | OP ---
DATE OF SURGERY: 05/06/2019 PROCEDURE NOTE FOR PAIN CLINIC PREOPERATIVE DIAGNOSIS: Complex regional pain syndrome, right upper extremity. POSTOPERATIVE DIAGNOSIS: Complex regional pain syndrome, right upper extremity. PROCEDURE: Right stellate ganglion block with fluoroscopic guidance. ANESTHESIA: IV sedation and local. BLOOD LOSS: Minimal. COMPLICATIONS: None. DESCRIPTION OF PROCEDURE: The patient was consented for right stellate ganglion block with risks discussed including, but not limited to bleeding, infection, possibility of extravasation of local anesthetic, possible total spinal block and resuscitative measures if necessary as well as poor results regarding pain control. The patient understands and wished to proceed. The patient was transferred to operating suite #6 and placed on the operating bed in the supine position on her own power. ASA monitors were placed. Oxygen by nasal cannula was delivered. The patient was given IV sedation. The patient's neck was prepped and draped in a usual fashion with 3 minutes waiting after prep for drape placement after full timeout in the OR occurred. Using C-arm fluoroscopic guidance under sterile prep and drape once again, the patient's cervical spine was visualized and the right C6 transverse process was localized with external skin marker. At this time, 1% lidocaine without epinephrine was then placed to use as skin wheal area of anesthesia over the marked spot of the right transverse C6 process. Using a 22-gauge Jone needle with stylet was entered through the area of anesthetized skin and under direct fluoroscopic vision was advanced to rest on the C6 transverse process. Stylet was removed. Negative aspiration was observed. At this time, 2 mL of Omnipaque contrast was then injected with good spread both above and below the needle insertion site, re-fluoro with no washout. No delusion or uptake of the contrast identified. At this time, a 10 mL of 0.25% bupivacaine was then injected with intermittent injections of aspiration between each 1-2 mL injections with negative aspiration throughout the time of injections. Needle was removed. At this time, sterile bandage was applied. The patient tolerated the procedure well, had no immediate complications and was transferred to the recovery room in good stable and awake condition. The patient did have a minor Mary syndrome in the recovery room and no complications. SKYLA COHN MD DR: ERIKA/angela JOB#: [id number] / [id number]
== END 2019-05-06 14:05 | disposition home or self-care (01) ==
LOC: SURG 11:03
PROVIDERS: ATTEND Anesthesiology
DX: G90.511 Complex regional pain syndrome I of right upper limb (principal)
CPT/HCPCS: 64510; 77002; J0780; J2250; J2704; J3010; J3490; Q9967; 76000

== ENCOUNTER → 2019-10-04 | Outpatient (CLI) | payer MEDICARE, OTHER ==
[~2019-10-04] MED LIST changes: -BUPIVACAINE MPF 0.25% 30 ML VIAL. ONE; -IOHEXOL 300 MG/ML 50 ML VIAL. ONE; +LIDO700A21 TP; -LIDOCAINE 1% Multi-Dose 20 ML VIAL. ONE
== END ==
LOC: LAB 15:04
PROVIDERS: ATTEND Anesthesiology
DX: Z01.812 Encounter for preprocedural laboratory examination (principal); Z20.828 Contact with and (suspected) exposure to other viral communicable diseases
CPT/HCPCS: U0003-CS

== ENCOUNTER 2019-10-07 10:42 | Day surgery (SDC) | payer MEDICARE, OTHER ==
--- NOTE | 2019-10-06 14:30 | PDOC ---
Progress Note - Pain Clinic Date of Service: DOS: DATE: 10/06/19 TIME: 14:24 Diagnosis: Dx: Preoperative history and physical assessment Preoperative diagnosis: Complex regional pain syndrome right upper extremity Postoperative diagnosis complex regional pain syndrome right upper extremity History of present illness: This is a 64-year-old female with history of injury to the right upper extremity with complex regional pain syndrome status post stellate ganglion block injections as well as medication management. Patient is doing fairly well with her right arm however is becoming more painful and significant increase in hypersensitivity allodynia and swelling. This been occurring for the past 6 weeks or so with difficulty using the right upper extremity secondary to the pain. Patient scribes pain is aching dull tingling burning and cramping worse at night keeping her from sleep unable to perform fine motor movements in the weightbearing or repetitive motions as well. Has been wearing a sling most of the last month secondary to the pain. Patient had stellate ganglion block May 06, 2019 with very good results near 90 to 95% improvement. Patient reports no new complaints or other findings at this time. Physical Exam: VS: Blood pressure 150/80 pulse 71 respirations 16 temperature 97.9 F height is 5 foot 10 inches weight is 1 8 3 pounds PE: PHYSICAL EXAMINATION: GENERAL: The patient is awake, alert, oriented, appropriate, very pleasant demeanor HEENT: Shows normocephalic, atraumatic. Extraocular movements are intact and symmetrical. NECK: Shows anterior throat supple without palpable lymphadenopathy noted. Swallow reflex symmetrical. CHEST: Shows normal on inspection. Breath sounds are clear bilaterally. HEART: Shows S1, S2 clear. No murmurs auscultated. ABDOMEN: Soft, nontender, nondistended. No palpable organomegaly is noted. No rebound or guarding demonstrated. BACK: Shows spine grossly in the midline. Normal-appearing cervical lordotic curvature, patient shows good rotation motion cervical spine both laterally as well as extension flexion without significant increase in pain.. There is slightly increased thoracic kyphosis, some minor flattening of the lumbar lordotic curvature. The patient has good rotational motion of the lumbar spine, both laterally as well as extension and flexion without significant difficulty. No tenderness over the spinous processes, sacrum or sacroiliac regions. EXTREMITIES: upper extremities show deep tendon reflexes 2+ in the biceps and tricep tendons. Motor exam is 3-4 on a scale of 5 with right green chain off bearer strength, bicep and triceps flexion and 5/5 on the left. Peripheral pulses are 2+ radial. Right sided upper extremity peripheral edema is noted, moderately on the wrist and forearm, with mild allodynia in the same distribution on the right only. Left upper extremity shows normal findings without allodynia or discoloration. Condition at Discharge: Condition at Discharge: Plan on repeat right-sided stellate ganglion block with fluoroscopic guidance. Scheduling will be performed through OR with conscious sedation. SKYLA COHN MD Oct 06, 2019 14:30
[~2019-10-07 10:42] MED LIST changes: +HYDROmorphone 2 MG/ML VIAL IV PRN; +IV RINGERS,LACTATED 1000ML 1,000 ML IV SCH; -LIDO700A21 TP; +MORPHINE SULFATE 2 MG/ML VIAL. IV PRN; +ONDANSETRON PF 4 MG/2 ML VIAL. IV PRN; +PROCHLORPERAZINE 10 MG/2 ML VIAL. IV PRN
[2019-10-07] MEDS ORDERED: IOHEXOL 300 MG/ML 50 ML VIAL. ONE (11:37)
[2019-10-07] MEDS ORDERED: LIDOCAINE 1% PF 30 ML VIAL. ONE (11:37)
[2019-10-07] MEDS ORDERED: PROPOFOL 10 MG/ML (20ML) VIAL. IV ONE ×2 (11:45→12:29)
[2019-10-07] MEDS ORDERED: BUPIVACAINE MPF 0.25% 30 ML VIAL. IJ ONE (11:45)
[2019-10-07] MEDS ORDERED: LIDOCAINE 2% PF 5 ML VIAL. ONE (11:45)
--- NOTE | 2019-10-07 12:45 | DISCH ---
DISCHARGE INSTRUCTIONS Condition on Discharge Condition on Discharge: Stable Activity After Discharge Activity Instructions for Disc: Activity as tolerated Driving Instructions after Dis: Do not drive today Weight Bearing Status after Di: As tolerated Diet after Discharge Diet after Discharge: Regular Wound Incision Care Wound/Incision Care: May get incision wet Contacting the DR. after DC Call your doctor for: Concerns you may have Treatment/Equipment after DC Adaptive Equipment Issued: None SKYLA COHN MD Oct 07, 2019 12:45
--- NOTE | 2019-10-07 12:48 | PDOC4 ---
OPERATIVE NOTE Date: Date: May 06, 2019 Pre-Op Diagnosis: CRPS RT UE Post-Op Diagnosis: Same Procedure Performed: Rt stellate ganglion block Surgeon: Timur Anesthesia Type: MAC Blood Loss: none Specimans Obtained: none Findings: see dictation Complications: none Operative Note: see jenaation SKYLA COHN MD Oct 07, 2019 12:48
[2019-10-07 12:52] VITALS: BP 143/91
[2019-10-07] MEDS ORDERED: LIDO700A21 TP (13:29)
[2019-10-07] MEDS ORDERED: HYDROmorphone 2 MG TABLET PO PRN (13:30)
[2019-10-07] MEDS ORDERED: HYDROcodone/APAP 7.5/325MG 1 TAB TABLET PO PRN (13:30)
--- NOTE | 2019-10-07 13:40 | PDOC ---
Progress Note - Pain Clinic Date of Service: DOS: DATE: 10/07/19 TIME: 13:32 Diagnosis: Dx: Complex regional pain syndrome right upper extremity History or Present Illness: HPI: 64-year-old female returns for operative visit today for right stellate ganglion block with fluoroscopic guidance. Patient reports increasing pain in the right upper extremity with continued movement and repetitive motion and activity with the right upper extremity. Patient reports she has increasing pain in the arm as well as tingling sensation in the forearm and the hand make it difficult to perform active daily activities. Reports she is using a sling on her right arm to hold the arm next to her body so that is not exacerbated with the pain. Patient reports difficulty sleeping secondary to the pain as well. Physical Exam: VS: Vital Signs Date Time Temp Pulse Resp B/P (MAP) Pulse Ox O2 Delivery O2 Flow Rate FiO2 10/07/19 12:52 97.5 61 16 143/91 98 Room Air 97.5 10/07/19 12:35 4 PE: PHYSICAL EXAMINATION: GENERAL: The patient is awake, alert, oriented, appropriate, very pleasant demeanor HEENT: Shows normocephalic, atraumatic. Extraocular movements are intact and symmetrical. NECK: Shows anterior throat supple without palpable lymphadenopathy noted. Swallow reflex symmetrical. CHEST: Shows normal on inspection. Breath sounds are clear bilaterally. HEART: Shows S1, S2 clear. No murmurs auscultated. ABDOMEN: Soft, nontender, nondistended. No palpable organomegaly is noted. No rebound or guarding demonstrated. BACK: Shows spine grossly in the midline. Normal-appearing cervical lordotic curvature. There is slightly increased thoracic kyphosis, some minor flattening of the lumbar lordotic curvature. Lumbar paraspinous muscles show symmetrical on inspection, on palpation shows some moderate tenderness diffusely throughout the upper, middle and lower distribution of the paraspinous muscles bilaterally and also into the lower thoracic paraspinous musculature, firm and tender, but without specific trigger points, without radiation of pain. The patient has good rotational motion of the lumbar spine, both laterally as well as extension and flexion without significant difficulty. No tenderness over the spinous processes, sacrum or sacroiliac regions. EXTREMITIES: Lower extremities show deep tendon reflexes 2+ in the biceps and triceps tendons. Motor exam is 3-4 on a scale of 5 with right industrial registered nurse strength bicep and tricep flexion and 5/5 on the left. Peripheral pulses are 2+ radial. No peripheral edema is noted bilaterally. upper extremities are warm and dry to touch, with right showing some bluish discoloration on the medial anterior wrist as well as over the posterior aspect of the right hand.. SKIN: Shows warm and dry, good turgor. No edema. No sores, rashes or bruising throughout. Procedure: Procedure: Options were discussed with the patient. Patient's old chart was reviewed as her current medication regimen updated current review of systems updated today as well. We will proceed with a right-sided stellate ganglion block today with fluoroscopic guidance risks were again discussed including but not limited to bleeding infection possibility of intravascular injection sequelae spread of local anesthetic and numbness spinal block with total spinal and possible resuscitative measures as well as exposure to fluoroscopy and conscious sedation and poor results regarding pain control. Understands and agrees would like to proceed. Medication Injected: Med Injected: Patient was taken to operating room #9 transferred to the bed on her own power ASA monitors were placed and conscious IV sedation was begun with supplemental oxygen. Using C-arm fluoroscopic guidance patient cervical spine was identified the right side of the transverse processes were identified and the C6 transverse process was identified externally using 1% lidocaine the area above this was anesthetized. Using a 22-gauge noncutting Jone tip spinal needle with stylette the needle was advanced to the contact of the C6 right transverse process. Stylet was removed negative aspiration was noted at this time 1.5 cc of contrast was injected with good spread superior and inferior to the needle placement without washout without uptake. This was checked again after 60 seconds with contrast unchanged at this time 0.25% bupivacaine, 10 cc total was injected intermittently with negative aspiration throughout. Needle was withdrawn and sterile bandage was applied. Patient tolerated procedure well had no immediate complications was transferred to the operating room in good and stable and awake condition. Condition at Discharge: Condition at Discharge: Condition at discharge was stable patient was discharged from the recovery department under her own power without any immediate complications. SKYLA COHN MD Oct 07, 2019 13:40
[2019-10-07] MEDS ORDERED: diazePAM 5 MG TABLET PO SCH (14:00)
[2019-10-07] MEDS ORDERED: cloNIDine HCL 0.2 MG TABLET PO SCH (17:00)
== END 2019-10-07 13:51 | disposition home or self-care (01) ==
LOC: SURG 10:42
PROVIDERS: ATTEND Anesthesiology
DX: G90.513 Complex regional pain syndrome I of upper limb, bilateral (principal); I10 Essential (primary) hypertension; F32.9 Major depressive disorder, single episode, unspecified; N32.89 Other specified disorders of bladder; Z91.018 Allergy to other foods; Z98.890 Other specified postprocedural states; Z79.899 Other long term (current) drug therapy
CPT/HCPCS: 64510; 76000; J2704; J3490; Q9967

== ENCOUNTER → 2020-03-06 | Outpatient (CLI) | payer MEDICARE, OTHER ==
[~2020-03-06] MED LIST changes: -HYDROmorphone 2 MG/ML VIAL IV PRN; -IV RINGERS,LACTATED 1000ML 1,000 ML IV SCH; +LIDO700A21 TP; -MORPHINE SULFATE 2 MG/ML VIAL. IV PRN; -ONDANSETRON PF 4 MG/2 ML VIAL. IV PRN; -PROCHLORPERAZINE 10 MG/2 ML VIAL. IV PRN
== END | disposition home or self-care (01) ==
LOC: LAB 13:20
PROVIDERS: ATTEND Anesthesiology
DX: Z20.828 Contact with and (suspected) exposure to other viral communicable diseases (principal)
CPT/HCPCS: U0003

== ENCOUNTER 2020-03-09 11:09 | Day surgery (SDC) | payer MEDICARE, OTHER ==
[~2020-03-09 11:09] MED LIST changes: +BUPIVACAINE MPF 0.25% 30 ML VIAL. ONE; +HYDROmorphone 2 MG/ML VIAL IV PRN; +IV RINGERS,LACTATED 1000ML 1,000 ML IV SCH; +LIDOCAINE 1% Multi-Dose 20 ML VIAL. ONE; +LIDOCAINE 1% PF 2 ML VIAL. ID PRN; +MORPHINE SULFATE 2 MG/ML VIAL. IV PRN; +ONDANSETRON PF 4 MG/2 ML VIAL. IV PRN; +PROCHLORPERAZINE 10 MG/2 ML VIAL. IV PRN
--- NOTE | 2020-03-09 11:23 | PDOC ---
Progress Note - Pain Clinic Date of Service: DOS: DATE: 03/09/20 TIME: 11:16 Diagnosis: Dx: Complex regional pain syndrome right upper extremity History or Present Illness: HPI: 63-year-old female with history of injury to the right upper extremity with complex regional pain syndrome resultant status post stellate ganglion block injections and medication management. Patient reports that she is doing fairly well with her right arm is coming more painful and significantly increasing in hypersensitivity swelling and allodynia of the right upper extremity with some discoloration as well and bluish changes in the fingers and wrist on the right hand. Patient reports is aching tingling burning dull and sharp at times cramping at times as well in the wrist and hand on the right side. Patient reports it does get worse at night and keeps her from sleep also was unable to perform fine motor movements with the right hand and upper extremities such as weightbearing movements repetitive motions. She reports has been wearing her splint again on her right arm for about the past 3 to 4 weeks. Patient reports no new changes no new motor or sensory deficits. Physical Exam: VS: Blood pressure 147/82 pulse 71 respirations 16 temperature 98.2 F height is 5 feet 10 inches weight is 187 pounds PE: PHYSICAL EXAMINATION: GENERAL: The patient is awake, alert, oriented, appropriate, very pleasant demeanor HEENT: Shows normocephalic, atraumatic. Extraocular movements are intact and symmetrical. Oral cavity: Mucous membranes moist and pink. Dentition is intact. NECK: Shows anterior throat supple without palpable lymphadenopathy noted. Swallow reflex symmetrical. CHEST: Shows normal on inspection. Breath sounds are clear bilaterally, no rale s rhonchi wheezes auscultated. HEART: Shows S1, S2 clear. No murmurs auscultated. ABDOMEN: Soft, nontender, nondistended. No palpable organomegaly is noted. BACK: Shows spine grossly in the midline. Normal-appearing cervical lordotic curvature. Cervical paraspinous muscles show symmetrical with inspection, on palpation shows some moderate tenderness diffusely in the inferior aspect the cervical paraspinous posture bilaterally. No trigger points are demonstrated no atrophy hypertrophy no asymmetry. Patient shows full rotation motion cervical spine both laterally greater than 45 degrees closer to 90 degrees as well as full extension full forward flexion without significant pain reported. There is slightly increased thoracic kyphosis, some minor flattening of the lumbar lordotic curvature. EXTREMITIES: Upper extremities show deep tendon reflexes 2+ in the biceps and triceps tendons. Patient wearing a splint on her right arm on initial presentation. Motor exam is 3 on a scale of 5 with right network management specialist strength, biceps and triceps flexion and 5/5 on the left. Peripheral pulses are 2+ radial. Patient's right upper extremity shows some mild bluish discoloration of the wrist and proximal hand on the posterior aspect. Patient does have allodynia with light touch over the wrist and the lateral aspect of the forearm distally. Upper extremities are warm and dry to touch. SKIN: Shows warm and dry, good turgor. No edema. No sores, rashes or bruising throughout. Procedure: Procedure: Options were discussed with the patient. Patient will chart reviews her current medication regimen updated current review of systems updated today as well. We will proceed with a right-sided stellate ganglion block today with C-arm fluoroscopic guidance and IV sedation in the operating suite. Risk were discussed including but not limited to bleeding infection possibility of intravascular injection and sequelae spread of local anesthetic and numbness total spinal block and resuscitative measures if necessary as well as poor results regarding pain control and exposure fluoroscopy. Patient understands wished to proceed. Medication Injected: Med Injected: See procedure note Condition at Discharge: Condition at Discharge: We will make arrangements for right-sided stellate ganglion block with conscious sedation in the operating suite. SKYLA COHN MD Mar 09, 2020 11:23
[2020-03-09] MEDS ORDERED: IOHEXOL 300 MG/ML 50 ML VIAL. ONE (12:14)
[2020-03-09] MEDS ORDERED: MIDAZOLAM HCL/PF 2 MG/2 ML VIAL. ONE ×2 (12:22→12:31)
[2020-03-09] MEDS ORDERED: PROPOFOL 10 MG/ML (20ML) VIAL. IV ONE (12:27)
[2020-03-09] MEDS ORDERED: LIDOCAINE 2% PF 5 ML VIAL. ONE (12:27)
--- NOTE | 2020-03-09 12:59 | DISCH ---
DISCHARGE INSTRUCTIONS Condition on Discharge Condition on Discharge: Stable Activity After Discharge Activity Instructions for Disc: Activity as tolerated Driving Instructions after Dis: Do not drive today Weight Bearing Status after Di: As tolerated Diet after Discharge Diet after Discharge: Regular Wound Incision Care Wound/Incision Care: May get incision wet Contacting the DR. after DC Call your doctor for: Concerns you may have Treatment/Equipment after DC Adaptive Equipment Issued: None SKYLA COHN MD Mar 09, 2020 12:59
--- NOTE | 2020-03-09 13:06 | PDOC4 ---
OPERATIVE NOTE Date: Date: Mar 09, 2020 Pre-Op Diagnosis: Complex regional pain syndrome right upper extremity Post-Op Diagnosis: Same Procedure Performed: Right stellate ganglion block with fluoroscopic guidance Surgeon: Timur Anesthesia Type: IV sedation Blood Loss: None Specimans Obtained: None Findings: See operative note dictation Complications: None Operative Note: Patient was consented for right stellate ganglion block. Risk were discussed including but not limited to bleeding infection possibility of intravascular injection sequela spread of local acetic numbness total spinal block and resuscitative measures if necessary as well as poor results regarding pain control. Patient understands wishes to proceed. Patient was taken to operative [facility]. 8 and transferred to operative bed on her own power standard anesthesia monitors were placed on oxygen by nasal cannula. Pressure points were padded. IV sedation was then begun. Using CO for scopic guidance patient cervical spine was identified in AP view and the right C6 transverse process was identified and using 1% lidocaine 25- gauge needle was topically anesthetized over the skin superimposed over the right C6 transverse process. Using a 22-gauge Jone tipped needle with stylette , and traversing through the anesthetized skin under direct fluoroscopic guidance was placed to contact the right medial aspect of the C6 transverse process. Needle was withdrawn negative aspiration was confirmed and 1 cc of contrast was injected with good spread above and below the needle without washout.. A period of 90 seconds was allowed and refluoroscopy with contrast still demonstrating in the area injected without washout or uptake. At this time 10 cc of 0.25% bupivacaine was injected with negative aspiration after every 1 cc injected throughout the injection of all 10 cc with negative aspiration throughout. Needle was withdrawn and sterile bandage was applied. Patient tolerated the procedure well and had no complications. SKYLA COHN MD Mar 09, 2020 13:06
[2020-03-09 13:35] VITALS: BP 114/71
== END 2020-03-09 14:30 | disposition home or self-care (01) ==
LOC: SURG 11:09
PROVIDERS: ATTEND Anesthesiology
DX: G90.511 Complex regional pain syndrome I of right upper limb (principal); I10 Essential (primary) hypertension; E66.9 Obesity, unspecified; F32.9 Major depressive disorder, single episode, unspecified; Z79.899 Other long term (current) drug therapy; Z98.890 Other specified postprocedural states; Z88.6 Allergy status to analgesic agent; Z88.8 Allergy status to other drugs, medicaments and biological substances
CPT/HCPCS: 64510; 77002; J2250; J2704; J3490; Q9967; 76000

== ENCOUNTER 2020-10-05 11:06 | Day surgery (SDC) | payer MEDICARE, OTHER ==
--- NOTE | 2020-10-04 16:14 | PDOC ---
Progress Note - Pain Clinic Date of Service: DOS: DATE: 10/04/20 TIME: 16:05 Diagnosis: Dx: Complex regional pain syndrome right upper extremity History or Present Illness: HPI: 65-year-old female for follow-up status post stellate ganglion injections and medication management patient done very well with the complex regional pain from right upper extremity after the injections and has not had an injection since May 06, 2019 did very well reports about a 75 to 80% improvement and increased functionality with the right upper extremity as well. Patient reports it now is becoming more noticeable and painful unable to perform fine motor movements with weightbearing repetitive movements of the right upper extremity as previously. Patient reports that the medications are still doing well she is not having any side effects with these. Patient reports her pain a 10 on scale 10 is worst 7 on average 4 to sleep and is a 7 currently. Physical Exam: VS: Pressure 162/71 pulse 81 respirations 16 temperature 98.2 F height is 5 foot 10 inches weight is 180 pounds PE: PHYSICAL EXAMINATION: GENERAL: The patient is awake, alert, oriented, appropriate, very pleasant in demeanor. HEENT: Shows normocephalic, atraumatic. Extraocular movements are intact and symmetrical. Oral cavity: Mucous membranes moist and pink. Dentition is intact. NECK: Shows anterior throat supple without palpable lymphadenopathy noted. Swallow reflex symmetrical. CHEST: Shows normal on inspection. Breath sounds are clear bilaterally, no rales rhonchi or wheezes auscultated. HEART: Shows S1, S2 clear. No murmurs auscultated. ABDOMEN: Soft, nontender, nondistended, obese. No palpable organomegaly is noted. BACK: Shows spine grossly in the midline. Normal-appearing cervical lordotic curvature. Cervical paraspinous muscles show symmetrical inspection, on palpation some moderate tenderness diffusely bilaterally without significant radiation in the middle and inferior aspect the cervical paraspinous musculature. Anterior cervical spine shows no abnormalities. Patient shows full rotation of motion cervical spine both laterally as well as extension and full forward flexion without difficulty. There is slightly increased thoracic kyphosis, some minor flattening of the lumbar lordotic curvature. Lumbar paraspinous muscles show symmetrical on inspection, on palpation shows some moderate tenderness diffusely throughout the upper, middle and lower distribution of the paraspinous muscles, but without specific trigger points, without radiation of pain. The patient has good rotational motion of the lumbar spine, both laterally as well as extension and flexion without significant difficulty. No tenderness over the spinous processes, sacrum or sacroiliac regions. EXTREMITIES: Upper extremities show deep tendon reflexes 2+ in the patellar and tendo calcaneus tendons. Motor exam is 3 on a scale of 5 with right dorsiflexion, extension, quadriceps and hamstring flexion and 5/5 on the left. Peripheral pulses are 2+ posterior tibial. No peripheral edema is noted bilaterally. Upper extremities are warm and dry to touch, right upper extremity shows patient holding onto her side and guarding position with a splint on initial presentation. Right upper extremity has some moderate swelling in the hand and the fingers on the right side but not the left. Patient does have some bluish discoloration on the posterior aspect of the forearm and the wrist on the right side only. Patient has some moderate allodynia with light touch mostly on the anterior aspect of the forearm and posterior aspect of the hand and wrist. SKIN: Shows warm and dry, good turgor. No edema. No sores, rashes or bruising throughout. Procedure: Procedure: Options were discussed with the patient. Patient's old chart was reviewed as her current medication regimen updated current review of systems updated today as well. We will schedule for patient with fluoroscopic guidance in OR with conscious sedation for right stellate ganglion block. Medication Injected: Med Injected: None Condition at Discharge: Condition at Discharge: Condition at discharge is stable. SKYLA COHN MD Oct 04, 2020 16:14
[~2020-10-05] VITALS: Ht 177.8 cm; Wt 79.0 kg
[~2020-10-05 11:06] MED LIST changes: -BUPIVACAINE MPF 0.25% 30 ML VIAL. ONE; -HYDROmorphone 2 MG/ML VIAL IV PRN; -IV RINGERS,LACTATED 1000ML 1,000 ML IV SCH; -LIDOCAINE 1% Multi-Dose 20 ML VIAL. ONE; -LIDOCAINE 1% PF 2 ML VIAL. ID PRN; -MORPHINE SULFATE 2 MG/ML VIAL. IV PRN; -ONDANSETRON PF 4 MG/2 ML VIAL. IV PRN; -PROCHLORPERAZINE 10 MG/2 ML VIAL. IV PRN
[2020-10-05 11:27] VITALS: BP 157/81
[2020-10-05] MEDS ORDERED: BUPIVACAINE MPF 0.25% 30 ML VIAL. ONE (11:48)
[2020-10-05] MEDS ORDERED: IOHEXOL 300 MG/ML 50 ML VIAL. ONE (11:48)
[2020-10-05] MEDS ORDERED: LIDOCAINE 1% PF 30 ML VIAL. ONE (11:48)
[2020-10-05] MEDS ORDERED: IV RINGERS,LACTATED 1000ML 1,000 ML IV SCH (12:00)
[2020-10-05] MEDS ORDERED: diphenhydrAMINE 50 MG/ML VIAL ONE (12:28)
[2020-10-05] MEDS ORDERED: MIDAZOLAM HCL/PF 2 MG/2 ML VIAL. ONE (12:28)
[2020-10-05] MEDS ORDERED: LIDOCAINE 2% PF 5 ML VIAL. ONE (12:28)
[2020-10-05] MEDS ORDERED: PROPOFOL 10 MG/ML (20ML) VIAL. IV ONE ×2 (12:28→13:01)
[2020-10-05] MEDS ORDERED: HYDR-2765 PO (13:09)
[2020-10-05] MEDS ORDERED: HYDR2TAB31 PO (13:13)
--- NOTE | 2020-10-05 13:14 | DISCH ---
DISCHARGE INSTRUCTIONS Condition on Discharge Condition on Discharge: Stable Activity After Discharge Activity Instructions for Disc: Activity as tolerated Driving Instructions after Dis: Do not drive today Weight Bearing Status after Di: As tolerated Diet after Discharge Diet after Discharge: Regular Wound Incision Care Wound/Incision Care: May get incision wet Contacting the DR. after DC Call your doctor for: Concerns you may have Treatment/Equipment after DC Adaptive Equipment Issued: None SKYLA COHN MD Oct 05, 2020 13:14
[2020-10-05 13:37] VITALS: BP 129/77
--- NOTE | 2020-10-05 13:40 | PDOC4 ---
OPERATIVE NOTE Date: Date: Mar 09, 2020 Pre-Op Diagnosis: Complex regional pain syndrome right upper extremity Post-Op Diagnosis: Complex regional pain syndrome right upper extremity Procedure Performed: Right stellate ganglion injection with fluoroscopic guidance Surgeon: Timur Anesthesia Type: IV sedation Blood Loss: Minimal Specimans Obtained: None Findings: See operative dictation Complications: None Operative Note: Patient in supine position under sterile prep and drape using C-arm fluoroscopic guidance patient cervical spine was identified and the C6 right transverse process identified. Using 25-gauge needle and 1% lidocaine the area over the C6 transverse process was topically anesthetized. Using a 22-gauge Jone tip needle with stylette under direct visualization with fluoroscopy was advanced to the medial aspect of the C6 transverse process on the right with good contact of the transverse process. Stylet was removed and aspiration was noted to be negative. At this time 1.5 cc of contrast was injected with good local spread, then waited 30 seconds with no uptake of the contrast. Aspiration again verified to be negative at this time 10 cc of 0.25% bupivacaine was then injected intermittently with aspiration negative throughout the injection. Needle was removed sterile bandage was applied. Patient tolerated the procedure well and had no complications. SKYLA COHN MD Oct 05, 2020 13:40
== END 2020-10-05 14:20 | disposition home or self-care (01) ==
LOC: SURG 11:06
PROVIDERS: ATTEND Anesthesiology
DX: G90.511 Complex regional pain syndrome I of right upper limb (principal); I10 Essential (primary) hypertension; E66.9 Obesity, unspecified; F32.9 Major depressive disorder, single episode, unspecified; Z79.899 Other long term (current) drug therapy; Z98.890 Other specified postprocedural states; Z88.6 Allergy status to analgesic agent; Z88.8 Allergy status to other drugs, medicaments and biological substances
CPT/HCPCS: 64510; 77003; A4930; J1200; J2250; J2704; J3490; Q9967; 76000

== ENCOUNTER → 2021-03-25 | Outpatient (CLI) | payer MEDICARE, OTHER ==
--- NOTE | 2021-03-25 15:02 | PDOC ---
Progress Note - Pain Clinic Date of Service: DOS: DATE: 03/25/21 TIME: 14:56 Diagnosis: Dx: Complex regional pain syndrome right upper extremity Lumbar radiculopathy with lumbar degenerative disc disease History or Present Illness: HPI: 65-year-old female returns for follow-up status post right stellate ganglion blocks most recently September 2020 patient did very well reports near 90% improvement for several months following the injection never back to full function but functional enough to where she can perform her daily activities of living without significant assistance patient reports that the pain is beginning to return now and has been for about the past 3 to 4 weeks getting worse in the right arm with increased pain with motion also's with sitting still has been disturbing her sleep at times about every 2 hours to 6 hours depending on if she is laying on her right side is much more frequent patient reports increased the hot and cold sensitivity to the right arm and discoloration and mottling with bluish discoloration of the hand as well as the forearm especially in the medial forearm very sensitive and tender to light touch in this region patient rates as a 10 on scale 10 is worse over the past week 9 on average 8 its least is a 9 today patient is aching and dull can be tingling burning radiating constant severe unbearable depending on her activity. Patient reports that her medication is doing fairly well though still using Lidoderm patches also clonidine Valium hydrocodone and hydromorphone in sparingly amounts as she has not had a refill for 30-day supply since September and she is using these only intermittently, and without any side effects with any of the medications utilized. Physical Exam: VS: Blood pressure is 134/80 pulse 74 respirations 16 temperature 97.9 F weight is 189 pounds. PE: PHYSICAL EXAMINATION: GENERAL: The patient is awake, alert, oriented, appropriate, very pleasant in demeanor HEENT: Shows normocephalic, atraumatic. Extraocular movements are intact and symmetrical. Oral cavity: Mucous membranes moist and pink. Dentition is intact. NECK: Shows anterior throat supple without palpable lymphadenopathy noted. Swallow reflex symmetrical. CHEST: Shows normal on inspection. Breath sounds are clear bilaterally, no rales or rhonchi auscultated. HEART: Shows S1, S2 clear. No murmurs auscultated. ABDOMEN: Soft, nontender, nondistended. No palpable organomegaly is noted. BACK: Shows spine grossly in the midline. Normal-appearing cervical lordotic curvature. There is mildly increased thoracic kyphosis, some minor flattening of the lumbar lordotic curvature. Lumbar paraspinous muscles show symmetrical on inspection, on palpation shows some moderate tenderness diffusely throughout the upper, middle and lower distribution of the paraspinous muscles without specific trigger points, without radiation of pain. The patient has good r otational motion of the lumbar spine, both laterally as well as extension and flexion without significant difficulty. No tenderness over the spinous processes, sacrum or sacroiliac regions. EXTREMITIES: Lower extremities show deep tendon reflexes 1+ in the patellar and tendo calcaneus tendons. Motor exam is 5 on a scale of 5 with right dorsiflexion, extension, quadriceps and hamstring flexion and 5/5 on the left. Peripheral pulses are 1 posterior tibial. No peripheral edema is noted bilaterally. Lower extremities are warm and dry to touch, equal in color and appearance. Upper extremities show deep tendon reflexes 2+ in the bicep and tricep tendons motor exam is approximate 3 on scale 5 with right banking supervisor 5 out of 5 on the left patient's right upper extremity shows ruborous discoloration of the palm as well as the medial forearm with significant allodynia with even very light touch on the right medial forearm as well as posteriorly and to the elbow posteriorly and laterally on the right side only left side shows 5 out of 5 banking supervisor strength bicep and tricep flexion. Patient's right shoulder shows significant tenderness in the arm with abduction past 45degrees as well. Peripheral pulses are 2+ radial bilaterally. SKIN: Shows warm and dry, good turgor. No edema. No sores, rashes or bruising throughout. Procedure: Procedure: Options were discussed with the patient. Patient's old chart was reviewed as her current medication regimen updated current review of systems updated today as well. We will refill patient's medication as she has had appropriate [facility] report as well as appropriate urinalyses to date. Patient was given instructions well side effects beware of each of the medications. Also will have urinalysis done today and sample will be taken. We will set up right stellate ganglion block with fluoroscopic guidance to be done with conscious sedation in operating room suite. Medication Injected: Med Injected: None Condition at Discharge: Condition at Discharge: Condition at discharge is stable. SKYLA COHN MD Mar 25, 2021 15:02
== END | disposition home or self-care (01) ==
LOC: PNCL 13:50
PROVIDERS: ATTEND Anesthesiology
DX: G90.511 Complex regional pain syndrome I of right upper limb (principal); M51.16 Intervertebral disc disorders with radiculopathy, lumbar region; I10 Essential (primary) hypertension; E66.9 Obesity, unspecified; F32.9 Major depressive disorder, single episode, unspecified; Z79.899 Other long term (current) drug therapy; Z90.49 Acquired absence of other specified parts of digestive tract; Z98.890 Other specified postprocedural states; Z88.6 Allergy status to analgesic agent; Z88.8 Allergy status to other drugs, medicaments and biological substances
CPT/HCPCS: 99212; G0463

== ENCOUNTER → 2021-03-29 | Day surgery (SDC) | payer MEDICARE, OTHER ==
[~2021-03-29] VITALS: Ht 177.8 cm; Wt 82.7 kg
[~2021-03-29] MED LIST changes: +BUPIVACAINE MPF 0.25% 30 ML VIAL. ONE; +HYDROmorphone 2 MG/ML INJ. IVP PRN; +IOHEXOL 300 MG/ML 50 ML VIAL. ONE; +IV RINGERS,LACTATED 1000ML 1,000 ML IV SCH; +LIDOCAINE 1% PF 30 ML VIAL. ONE; +LIDOCAINE 2% PF 5 ML VIAL. ONE; +MIDAZOLAM HCL/PF 2 MG/2 ML VIAL. ONE; +MORPHINE SULFATE 2 MG/ML INJ. IVP PRN; +ONDANSETRON PF 4 MG/2 ML VIAL. ONE; +PROCHLORPERAZINE 10 MG/2 ML VIAL. IVP PRN; +PROPOFOL 10 MG/ML (20ML) VIAL. IV ONE; +SUCCINYLCHOLINE 200 MG/10 ML VIAL. ONE; +fentaNYL PF VIAL 100 MCG/2 ML VIAL IVP PRN
[2021-03-29 10:44] VITALS: BP 147/83
--- NOTE | 2021-03-29 12:47 | DISCH ---
DISCHARGE INSTRUCTIONS Condition on Discharge Condition on Discharge: Stable Activity After Discharge Activity Instructions for Disc: Activity as tolerated Driving Instructions after Dis: Do not drive today Weight Bearing Status after Di: As tolerated Diet after Discharge Diet after Discharge: Regular Wound Incision Care Wound/Incision Care: May get incision wet Contacting the DR. after DC Call your doctor for: Concerns you may have Treatment/Equipment after DC Adaptive Equipment Issued: None SKYLA COHN MD Mar 29, 2021 12:47
[2021-03-29 13:00] VITALS: BP 104/67
--- NOTE | 2021-03-29 13:16 | PDOC4 ---
OPERATIVE NOTE Date: Date: Mar 09, 2020 Pre-Op Diagnosis: Complex regional pain syndrome right upper extremity Post-Op Diagnosis: Same Procedure Performed: Right stellate ganglion block with fluoroscopic guidance Surgeon: Timur Anesthesia Type: IV sedation Blood Loss: Minimal Specimans Obtained: None Findings: See dictation Complications: None Operative Note: Patient in supine position under sterile prep and drape using C-arm fluoroscopic guidance patient cervical spine was identified and the C6 right transverse process identified. Using 25-gauge needle and 1% lidocaine the area over the C6 transverse process was topically anesthetized. Using a 22-gauge Jone tip needle with stylette under direct visualization with fluoroscopy was advanced to the medial aspect of the C6 transverse process on the right with good contact of the transverse process. Stylet was removed and aspiration was noted to be negative. At this time 1.5 cc of contrast was injected with good local spread, then waited 30 seconds with no uptake of the contrast. Aspiration again verified to be negative at this time 10 cc of 0.25% bupivacaine was then inj ected intermittently with aspiration negative throughout the injection. Needle was removed sterile bandage was applied. Patient tolerated the procedure well and had no complications. SKYLA COHN MD Mar 29, 2021 13:16
== END | disposition home or self-care (01) ==
LOC: SURG 10:12
PROVIDERS: ATTEND Anesthesiology
DX: G90.511 Complex regional pain syndrome I of right upper limb (principal); I10 Essential (primary) hypertension; E66.9 Obesity, unspecified; F32.9 Major depressive disorder, single episode, unspecified; Z79.899 Other long term (current) drug therapy; Z98.890 Other specified postprocedural states; Z88.6 Allergy status to analgesic agent; Z88.8 Allergy status to other drugs, medicaments and biological substances
CPT/HCPCS: 64510; 77003; A4209; J2250; J2405; J2704; J3490; Q9967; 76000; A4657; J0330

== ENCOUNTER → 2021-06-10 | Outpatient (CLI) | payer MEDICARE, OTHER ==
[2021-03-29 13:00] VITALS: BP 104/67
[~2021-06-10] MED LIST changes: -BUPIVACAINE MPF 0.25% 30 ML VIAL. ONE; -HYDROmorphone 2 MG/ML INJ. IVP PRN; -IOHEXOL 300 MG/ML 50 ML VIAL. ONE; -IV RINGERS,LACTATED 1000ML 1,000 ML IV SCH; -LIDOCAINE 1% PF 30 ML VIAL. ONE; -LIDOCAINE 2% PF 5 ML VIAL. ONE; -MIDAZOLAM HCL/PF 2 MG/2 ML VIAL. ONE; -MORPHINE SULFATE 2 MG/ML INJ. IVP PRN; -ONDANSETRON PF 4 MG/2 ML VIAL. ONE; -PROCHLORPERAZINE 10 MG/2 ML VIAL. IVP PRN; -PROPOFOL 10 MG/ML (20ML) VIAL. IV ONE; -SUCCINYLCHOLINE 200 MG/10 ML VIAL. ONE; -fentaNYL PF VIAL 100 MCG/2 ML VIAL IVP PRN
--- NOTE | 2021-06-10 10:51 | PDOC ---
Progress Note - Pain Clinic Date of Service: DOS: DATE: 06/10/21 TIME: 10:45 Diagnosis: Dx: Complex regional pain syndrome right upper extremity low back pain with lumbar radiculopathy History or Present Illness: HPI: 65-year-old female returns for follow-up status post right stellate ganglion block March 29, 2021. Patient reports no significant improvement which is uncharacteristic she generally does very well with about 80 to 90% improvement after these procedures patient reports that she has less feeling in her right upper extremity her right arm is becoming much more symptomatic with aching dull and tight sensation cramping stabbing pain tingling burning can be constant severe consistent with complex regional pain syndrome of the right upper extremity but also having some pain in the right lower extremity also has excessive sweating on the right side of her body and having difficulty with m entation with making decisions and emotional fluctuations significantly as well. Patient reports he is very fatigued highly agitated tearful aggressive has no patient is currently which is not like her normally. Patient rates her pain is a 10 on scale 10 is worst least and 8 at times but is a 10 today. Patient reports no loss of significant function except for the right upper extremity and also a headache present since her last visit as well. Patient is quite distraught today and worried about neuropsychological events, patient reports she is not to a suicidal point but is very emotional and agitated. Patient reports right upper extremity significant symptoms: Hot changes sweat swelling discoloration and cold temperature sensation as well. Physical Exam: VS: Blood pressure is 150/103 pulse 60 respirations 20 temperature 97.9 F weight is 200 pounds. PE: PHYSICAL EXAMINATION: GENERAL: The patient is awake, alert, oriented, appropriate, very pleasant in demeanor HEENT: Shows normocephalic, atraumatic. Extraocular movements are intact and symmetrical. Oral cavity: Mucous membranes moist and pink. Dentition is intact. NECK: Shows anterior throat supple without palpable lymphadenopathy noted. Swallow reflex symmetrical. CHEST: Shows normal on inspection. Breath sounds are clear bilaterally. HEART: Shows S1, S2 clear. No murmurs auscultated. ABDOMEN: Soft, nontender, nondistended. No palpable organomegaly is noted. BACK: Shows spine grossly in the midline. Normal-appearing cervical lordotic curvature. There is slightly increased thoracic kyphosis, some minor flattening of the lumbar lordotic curvature. Lumbar paraspinous muscles show symmetrical on inspection, on palpation shows some moderate tenderness diffusely throughout the upper, middle and lower distribution of the paraspinous muscles, but without specific trigger points, without radiation of pain. The patient has good rotational motion of the lumbar spine, both laterally as well as extension and flexion without significant difficulty. No tenderness over the spinous processes, sacrum or sacroiliac regions. 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 Right side shows bluish discoloration again in the forearm and the hand posteriorly with some puffiness of the skin noted compared to the left hand on the posterior aspect with peripheral pulses that are palpable at 2+ radial bilaterally. Patient shows significant allodynia with light touch over the medial aspect of the upper arm as well as the anterior posterior aspect of the forearm and the posterior aspect of the hand as well. SKIN: Shows warm and dry, good turgor. No edema. No sores, rashes or bruising throughout. Procedure: Procedure: Options were discussed with the patient. Patient's old chart was reviewed as her current medication regimen updated current review of systems updated today as well. We discussed in detail options today and we will have her evaluated with a neurologist to rule out any organic causes of her recent symptomatology. Also will prescribe lidocaine patches as she is done well with these in the past has been using them much more frequently with the right upper extremity pain and complex regional pain syndrome. Patient maintained her medications however she is not taking narcotics currently as she is worried about any potential side effects that may cause her mental state to be affected and worsened. We discussed this in detail as well are in agreement that tese will be held currently. Patient will follow-up after neurology assessment. Medication Injected: Med Injected: None Condition at Discharge: Condition at Discharge: Condition at discharge is stable. SKYLA COHN MD Jun 10, 2021 10:51
== END | disposition home or self-care (01) ==
LOC: PNCL 09:24
PROVIDERS: ATTEND Anesthesiology
DX: G90.511 Complex regional pain syndrome I of right upper limb (principal); M54.16 Radiculopathy, lumbar region; I10 Essential (primary) hypertension; E66.9 Obesity, unspecified; F32.9 Major depressive disorder, single episode, unspecified; Z79.899 Other long term (current) drug therapy; Z98.890 Other specified postprocedural states; Z88.6 Allergy status to analgesic agent; Z88.8 Allergy status to other drugs, medicaments and biological substances
CPT/HCPCS: 99212; G0463